=== PATIENT | female | born 1965 | race Caucasian/White ===

== ENCOUNTER 2017-02-28 17:41 | Emergency (ER) | payer MEDICARE, MEDICAID ==
[2017-02-28 19:00] VITALS: BP 119/68
--- NOTE | 2017-02-28 19:07 | UC ---
FLU HPI - HPI Summary HPI Summary: Patient is an otherwise healthy 51yo female who presents with CC of fever, chills and cough for 4 days. Pt has coughing spasms and difficulty breathing with coughing fits. Pt states she thinks she may have bronchitis as she gets this often. She also notes to passing out on 3 different occasions over the past week and this has never happened to her before. She states it is likely d/ t the dizziness. She fell and hit her head 2 weeks ago but never had any associated sxs such as dizziness, [place], pain, N/V, etc. She notes to a 103 fever yesterday. Patient is a former smoker. She has tried to take tylenol and allergy medication without relief. she has not tried a cough medication. - History of Current Complaint Chief Complaint: UCRespiratory Stated Complaint: CONGESTION Time Seen by Provider: 02/28/17 18:50 Hx Obtained From: Patient ?: No Onset/Duration: Sudden Onset Severity Currently: Moderate Severity Initially: Severe Pain Intensity: 2 Pain Scale Used: 0-10 Numeric Associated Signs & Symptoms: Positive: Fever, T Max - 103, F/C, Myalgia, Cough, Sore Throat, Nasal Congestion, Headache Related Hx: Possible Flu/Infectious Exposure - Risk Factors Influenza Risk Factors: Negative - Allergy/Home Medications Allergies/Adverse Reactions: Allergies Allergy/AdvReac Type Severity Reaction Status Date / Time Aspirin Allergy Severe Hives/Diff. Verified 02/28/17 19:00 Breathing/I tching Bee Venom Allergy Severe Anaphylatic Verified 02/28/17 19:00 Shock Moxifloxacin [From Avelox] Allergy Severe Anaphylatic Verified 02/28/17 19:00 Shock Pork Allergy Allergy Severe anaphylatic Verified 02/28/17 19:00 Topiramate [From Topamax] Allergy Severe Suicidal Verified 02/28/17 19:00 Adhesive Tape Allergy Intermediate Rash Verified 02/28/17 19:00 Zolpidem [From Ambien] Allergy Intermediate See Comment Verified 02/28/17 19:00 Aripiprazole [From Abilify] Allergy Unknown Hives/Diff. Verified 02/28/17 19:00 Breathing/I tching Lorazepam [From Ativan] Allergy Unknown Hallucinati Verified 02/28/17 19:00 ons Acesulfame Potassium Allergy Rash Verified 02/28/17 19:00 [From Suboxone] Atomoxetine [From Strattera] Allergy Hives Verified 02/28/17 19:00 Buprenorphine/Naloxone Allergy Rash Verified 02/28/17 19:00 [From Suboxone] ENVIRONMENTAL/SEASONAL Allergy Intermediate Sneezing Uncoded 02/28/17 19:00 HAYFEVER PMH/Surg Hx/FS Hx/Imm Hx Previously Healthy: No - patient has multiple issues and is on disability Endocrine History Of: Denies: Diabetes, Thyroid Disease Cardiovascular History Of: Reports: Cardiac Disorders - heart attack and , Hypertension - ON MEDS Denies: Pacemaker/ICD, Congestive Heart Failure, Deep Vein Thrombosis Respiratory History Of: Reports: COPD, Asthma, Bronchitis - CHRONIC, Pneumonia GI/ History Of: Reports: Gastroesophageal Reflux Denies: Renal Disease Neurological History Of: Reports: Migraine - 1-2 PER MONTH Denies: TIA, CVA, Dementia, Seizures Psychological History Of: Reports: Anxiety - ON MEDS, Depression - ON MEDS, Bipolar Disorder Denies: Schizophrenia Cancer History Of: Denies: Breast Cancer Other History Of: Negative For: Anticoagulant Therapy - Surgical History Surgical History: Yes Surgery Procedure, Year, and Place: cholecystectomy, 2006, [facility]. T/A 4TH GRADE. 13 RIGHT KNEE SURGIES, REPLACED. 2 LEFT KNEE SURGERIES. CARPAL TUNNEL/ TRIGGER FINGERS X5 MATTIE - Family History Known Family History: Positive: Cardiac Disease, Hypertension - Social History Occupation: Disabled Lives: Alone Alcohol Use: None Alcohol Amount: NONE SINCE 03/26/2014 Substance Use Type: None Substance Use Comment - Amount & Last Used: Narcotics Smoking Status (MU): Former Smoker Type: Cigarettes Amount Used/How Often: 3PPD X 2YR Have You Smoked in the Last Year: No When Did the Patient Quit Smoking/Using Tobacco: 1998 - Immunization History Most Recent Influenza Vaccination: DENIES Most Recent Tetanus Shot: Pt cannot recall but also declines to get shot at present time Most Recent Pneumonia Vaccination: PT STATES HAS RECEIVED IN PAST, DOES NOT RECALL WHAT YR. Review of Systems Constitutional: Fever, Chills, Fatigue Skin: Negative ENT: Nasal Discharge Respiratory: Shortness Of Breath, Cough Cardiovascular: Negative Genitourinary: Negative Motor: Weakness Neurovascular: Negative Musculoskeletal: Myalgia Neurological: Headache, Weakness Psychological: Negative All Other Systems Reviewed And Are Negative: Yes Physical Exam Triage Information Reviewed: Yes Appearance: Well-Appearing, Well-Nourished Vital Signs: Initial Vital Signs Temp 99.0 F 02/28/17 18:53 Pulse 72 02/28/17 18:53 Resp 20 02/28/17 18:53 BP 119/68 02/28/17 18:53 Pulse Ox 99 02/28/17 18:53 Vital Signs Reviewed: Yes Eye Exam: Normal Eyes: Positive: Conjunctiva Clear Neck exam: Normal Neck: Positive: Supple, No Lymphadenopathy Respiratory Exam: Normal Respiratory: Positive: Chest non-tender, Lungs clear Cardiovascular Exam: Normal Musculoskeletal Exam: Normal Musculoskeletal: Positive: Strength Intact, ROM Intact Neurological Exam: Normal Neurological: Positive: Alert, Fatigued Psychological Exam: Normal Psychological: Positive: Normal Response To Family, Age Appropriate Behavior Skin Exam: Normal Flu Course/Dx - Course Course Of Treatment: FLU NEGATIVE. PATIENT GIVEN MECLIZINE FOR RELIEF OF DIZZINESS. ROBITUSSIN WITH CODEINE AT BEDTIME FOR COUGH. TAPERING PREDNISONE FOR COUGH AND CONGESTION AND DIZZINESS. FOLLOW UP WITH PCP. PATIENT AGREES TO PLAN AND OK FOR DISCHARGE. LUNGS SOUND OK. - Differential Dx/Diagnosis Differential Diagnosis/HQI/PQRI: Bronchitis, Influenza, Pneumonia, Upper Respiratory Infection Provider Diagnoses: COUGH, DIZZINESS Discharge - Discharge Plan Condition: Stable Disposition: HOME Prescriptions: Meclizine HCl [Meclizine 25] 25 mg PO TID PRN #12 tab MDD 3 PRN Reason: Dizziness guaiFENesin/CODIEN 100MG-10MG* [Robitussin AC 100Mg-10Mg*] 10 ml PO BEDTIME PRN #100 udc MDD 10 PRN Reason: Cough guaiFENesin/CODIEN 100MG-10MG* [Robitussin AC 100Mg-10Mg*] 10 ml PO BEDTIME PRN #100 ml MDD 10 PRN Reason: Cough predniSONE TAB* [Deltasone TAB*] 10 mg PO DAILY #17 tab Patient Education Materials: Dizziness (ED), Acute Cough (ED) Referrals: Erlinda Stovall [Primary Care Provider] - Additional Instructions: TAKE MEDICATIONS PRESCRIBED REST DRINK PLENTY OF FLUIDS HUMIDIFIER IN THE HOME WILL HELP IBUPROFEN 800 MG THREE TIMES DAILY FOR INFLAMMATION FOLLOW UP WITH PCP
== END 2017-02-28 19:57 | disposition home or self-care (01) ==
LOC: UCEAST 17:41
DX: R42 Dizziness and giddiness (principal); R05 Cough; I10 Essential (primary) hypertension; I25.2 Old myocardial infarction; J44.9 Chronic obstructive pulmonary disease, unspecified; K21.9 Gastro-esophageal reflux disease without esophagitis; F31.9 Bipolar disorder, unspecified; Z91.030 Bee allergy status; Z88.6 Allergy status to analgesic agent; Z88.8 Allergy status to other drugs, medicaments and biological substances; Z91.018 Allergy to other foods; Z91.048 Other nonmedicinal substance allergy status
CPT/HCPCS: 87502; 99212; G0463

== ENCOUNTER → 2017-05-23 10:52 | Emergency (ER) | payer MEDICARE, MEDICAID ==
[~2017-05-23 10:52] MED LIST: Al Hydrox/Mg Hydrox/Simet LIQ* 30 ML UDC PO ONE; Lidocaine 2% VISCOUS* 15 ML UDC PO ONE
--- NOTE | 2017-05-23 11:22 | ED ---
GI/ HPI - HPI Summary HPI Summary: 51F presents with choking on a watermelon rind. She states she had dental surgery and is not able to chew well. She states she was chewing and then she looked at her cat and started to laugh and then choked. She tried swallowing some water afterwards and half the water went down and half she spit back up. She denies any chest pain or SOB. She states I am not having an UT. The pain started immediately when she started to choke. - History of Current Complaint Chief Complaint: EDForeignBodyEsophag Time Seen by Provider: 05/23/17 11:10 Stated Complaint: POSS PARTIAL AIRWAY OBSTRUCTION Pain Intensity: 7 - Allergy/Home Medications Allergies/Adverse Reactions: Allergies Allergy/AdvReac Type Severity Reaction Status Date / Time Aspirin Allergy Severe Hives/Diff. Verified 02/28/17 19:00 Breathing/I tching Bee Venom Allergy Severe Anaphylatic Verified 02/28/17 19:00 Shock Moxifloxacin [From Avelox] Allergy Severe Anaphylatic Verified 02/28/17 19:00 Shock Pork Allergy Allergy Severe anaphylatic Verified 02/28/17 19:00 Topiramate [From Topamax] Allergy Severe Suicidal Verified 02/28/17 19:00 Adhesive Tape Allergy Intermediate Rash Verified 02/28/17 19:00 Zolpidem [From Ambien] Allergy Intermediate See Comment Verified 02/28/17 19:00 Aripiprazole [From Abilify] Allergy Unknown Hives/Diff. Verified 02/28/17 19:00 Breathing/I tching Lorazepam [From Ativan] Allergy Unknown Hallucinati Verified 02/28/17 19:00 ons Acesulfame Potassium Allergy Rash Verified 02/28/17 19:00 [From Suboxone] Atomoxetine [From Strattera] Allergy Hives Verified 02/28/17 19:00 Buprenorphine/Naloxone Allergy Rash Verified 02/28/17 19:00 [From Suboxone] ENVIRONMENTAL/SEASONAL Allergy Intermediate Sneezing Uncoded 02/28/17 19:00 HAYFEVER PMH/Surg Hx/FS Hx/Imm Hx Endocrine/Hematology History: Denies: Hx Anticoagulant Therapy, Hx Diabetes, Hx Thyroid Disease, Hx Anemia , Hx Unexplained Bleeding, Other Endocrine/Hematological Disorders Cardiovascular History: Reports: Hx Coronary Artery Disease, Hx Hypercholesterolemia, Hx Hypertension - ON MEDS Denies: Hx Aneurysm, Hx Angina, Hx Angioplasty, Hx Auto Implanted Cardiovert Defib, Hx Cardiac Arrest, Hx Cardiomegaly, Hx Congenital Heart Disease, Hx Congestive Heart Failure, Hx Deep Vein Thrombosis, Hx Embolism, Hx Hypotension, Hx Pacemaker/ICD, Hx Peripheral Vascular Disease, Hx Rheumatic Fever, Hx Syncope , Hx Valvular Heart Disease, Other Cardiovascular Problems/Disorders Respiratory History: Reports: Hx Asthma, Hx Chronic Bronchitis, Hx Chronic Obstructive Pulmonary Disease (COPD), Hx Pneumonia, Hx Sleep Apnea Denies: Other Respiratory Problems/Disorders GI History: Reports: Hx Gastroesophageal Reflux Disease Denies: Other GI Disorders History: Reports: Hx Kidney Infection - Hx OF 2008 Denies: Hx Renal Disease, Other Problems/Disorders Musculoskeletal History: Reports: Hx Arthritis - ALL OVER, Hx Back Problems, Hx Fibromyalgia, Hx Orthopedic Injury - RECENT R PLANTAR TENDON TEAR, Hx Tendonitis - Hx OF ELBOW Denies: Other Musculoskeletal History Sensory History: Reports: Hx Contacts or Glasses - GLASSES, Hx Hearing Problem Denies: Hx Cataracts, Hx Eye Injury, Hx Eye Prosthesis, Hx Glaucoma, Hx Legally Blind, Hx Macular Degeneration, Hx Vision Problem, Hx Deafness, Hx Hearing Aid, Other Sensory Impairments Opthamlomology History: Reports: Hx Contacts or Glasses - GLASSES Denies: Hx Cataracts, Hx Eye Injury, Hx Eye Prosthesis, Hx Glaucoma, Hx Legally Blind, Hx Macular Degeneration, Hx Vision Problem, Other Sensory Impairments Neurological History: Reports: Hx Headaches, Hx Migraine - 1-2 PER MONTH Denies: Hx Dementia, Hx Developmental Delay, Hx Nerve Disease, Hx Seizures, Hx Spinal Cord Injury, Hx Transient Ischemic Attacks (TIA), Other Neuro Impairments/Disorders Psychiatric History: Reports: Hx Anxiety - ON MEDS, Hx Depression - ON MEDS, Hx Post Traumatic Stress Disorder, Hx Inpatient Treatment, Hx Community Mental Health Tx, Hx Bipolar Disorder, Hx Suicide Attempt, Hx of Violent Episodes Against Others, Hx Substance Abuse, Other Psychiatric Issues/Disorders Denies: Hx Attention Deficit Hyperactivity Disorder, Hx Eating Disorder, Hx Panic Disorder, Hx Schizophrenia - Cancer History Hx Chemotherapy: No Hx Radiation Therapy: No - Surgical History Surgery Procedure, Year, and Place: cholecystectomy, 2007, [facility]. T/A 4TH GRADE. 13 RIGHT KNEE SURGIES, REPLACED. 2 LEFT KNEE SURGERIES. CARPAL TUNNEL/ TRIGGER FINGERS X5 MATTIE Hx Anesthesia Reactions: Yes - N/V Infectious Disease History: No Infectious Disease History: Denies: Hx Clostridium Difficile, Hx Hepatitis, Hx Human Immunodeficiency Virus (HIV), Hx of Known/Suspected MRSA, Hx Shingles, Hx Tuberculosis, Hx Known/ Suspected VRE, Hx Known/Suspected VRSA, History Other Infectious Disease, Traveled Outside the [place] in Last 30 Days - Family History Known Family History: Positive: Cardiac Disease, Hypertension - Social History Alcohol Use: None Alcohol Amount: NONE SINCE 03/26/2014 Substance Use Type: Reports: None Substance Use Comment - Amount & Last Used: Narcotics Smoking Status (MU): Former Smoker Type: Cigarettes Amount Used/How Often: 3PPD X 2YR Have You Smoked in the Last Year: No Review of Systems Negative: Fever Negative: Chest Pain Negative: Shortness Of Breath Positive: Abdominal Pain - epigastric pain, Other - foreign body feeling esophagys. Negative: Vomiting, Diarrhea, Nausea All Other Systems Reviewed And Are Negative: Yes Physical Exam Triage Information Reviewed: Yes Vital Signs On Initial Exam: Initial Vitals Temp Pulse Resp BP Pulse Ox 98.7 F 70 18 118/57 98 05/23/17 10:59 05/23/17 10:59 05/23/17 10:59 05/23/17 10:59 05/23/17 10:59 Vital Signs Reviewed: Yes Appearance: Positive: Well-Appearing Skin: Positive: Warm, Dry Head/Face: Positive: Normal Head/Face Inspection Eyes: Positive: Normal, Conjunctiva Clear ENT: Positive: Normal ENT inspection, Pharynx normal, TMs normal Respiratory/Lung Sounds: Positive: Clear to Auscultation, Breath Sounds Present Cardiovascular: Positive: Normal, RRR Abdomen Description: Positive: Soft, Other: - mild tenderness in epigastric pain Bowel Sounds: Positive: Present Diagnostics - Vital Signs Vital Signs Temp Pulse Resp BP Pulse Ox 05/23/17 10:59 98.7 F 72 17 118/57 98 - Laboratory Lab Statement: Any lab studies that have been ordered have been reviewed, and results considered in the medical decision making process. - CT chest CT Interpretation: No Acute Changes - IMPRESSION: 1. SMALL HIATAL HERNIA. 2. OTHERWISE UNREMARKABLE NONCONTRAST CT OF THE CHEST CT Interpretation Completed By: Radiologist OLGA Course/Dx - Course Course Of Treatment: 51F presents with choking on a watermelon rind. She states she had dental surgery and is not able to chew well. She states she was chewing and then she looked at her cat and started to laugh and then choked. She tried swallowing some water afterwards and half the water went down and half she spit back up. She denies any chest pain or SOB. Do not suspect pain is cardiac related even though it having epigastric pain. No GI coverage so got CT chest shows no foreign body. discussed with dr ibis cota d/c on antiacid. patient understands and agrees with plan - Diagnoses Differential Diagnoses - Female: Gastroenteritis (Viral), GI Foreign Body, Peptic Ulcer Disease Provider Diagnoses: Esophageal foreign body Discharge - Discharge Plan Condition: Good Disposition: HOME Prescriptions: Al Hydrox/Mg Hydrox/Simet LIQ* [Maalox Plus*] 30 ml PO Q4H PRN #1 bottle PRN Reason: Indigestion Patient Education Materials: Esophageal Foreign Body (ED) Referrals: Erlinda Stovall [Primary Care Provider] - Additional Instructions: Take Maalox 30ml every 4-6 hours for pain Drink plenty of fluids Eat soft foods for a day and avoid acidic food Follow up with primary within 5 days Return to ED if develop any new or worsening symptoms
--- NOTE | 2017-05-23 12:03 | RAD ---
HISTORY: Choking, food stuck in esophagus COMPARISONS: July 08, 2015 TECHNIQUE: Multiple contiguous axial CT scans of the chest were obtained without intravenous contrast. Coronal and sagittal multiplanar reformations are also submitted for review. FINDINGS: The study is limited by the lack of intravenous contrast. This limits evaluation of the solid organs and vasculature. NECK AND THYROID: The lower neck and thyroid are unremarkable. CHEST WALL: There is no lower cervical, axillary, or supraclavicular lymphadenopathy by size criteria. HEART AND PERICARDIUM: The heart is unremarkable. AORTA AND PULMONARY VASCULATURE: The aorta and pulmonary vasculature are normal. MEDIASTINUM: There is no mediastinal lymphadenopathy by size criteria. CARMENCITA: There is no hilar lymphadenopathy by size criteria. AIRWAY AND ESOPHAGUS: The airway is unremarkable, without endobronchial filling defect. The esophagus is grossly normal. There is a small sliding hiatal hernia. There is no appreciable retained object within the visualized portion of the esophagus. LUNG PARENCHYMA: The lungs are clear. PLEURA: No pleural abnormalities are noted. UPPER ABDOMEN: The upper abdomen is unremarkable. BONES AND SOFT TISSUES: Degenerative changes are noted of the spine OTHER: None. IMPRESSION: 1. SMALL HIATAL HERNIA. 2. OTHERWISE UNREMARKABLE NONCONTRAST CT OF THE CHEST
[2017-05-23 12:40] VITALS: BP 130/59
== END | disposition home or self-care (01) ==
LOC: ED 10:52
DX: S10.15XA Superficial foreign body of throat, initial encounter (principal); R10.13 Epigastric pain; Z87.891 Personal history of nicotine dependence; X58.XXXA Exposure to other specified factors, initial encounter; Y93.9 Activity, unspecified; Y92.9 Unspecified place or not applicable
CPT/HCPCS: 71250; 99283

== ENCOUNTER 2017-06-18 17:26 | Emergency (ER) | payer MEDICARE, MEDICAID ==
--- NOTE | 2017-06-18 19:15 | ED ---
Lower Extremity - HPI Summary HPI Summary: 51F presents with left knee pain for a week. She states a week and a half ago she got her knee tangled in the sheets and felt it twist. She states since then the knee has been popping and locking. She states she has pain on the medial aspect of her knee. She states that on Sunday that her knee locked up and she had extreme pain. She has been taking ibuprofen for her pain. She denies any numbness or tingling. She had a previous knee replacement of the right knee. She is seeing ortho next sun. - History of Current Complaint Chief Complaint: EDExtremityLower Stated Complaint: LEFT KNEE PAIN Time Seen by Provider: 06/18/17 18:27 Pain Intensity: 8 - Allergies/Home Medications Allergies/Adverse Reactions: Allergies Allergy/AdvReac Type Severity Reaction Status Date / Time Aspirin Allergy Severe Hives/Diff. Verified 02/28/17 19:00 Breathing/I tching Bee Venom Allergy Severe Anaphylatic Verified 02/28/17 19:00 Shock Moxifloxacin [From Avelox] Allergy Severe Anaphylatic Verified 02/28/17 19:00 Shock Pork Allergy Allergy Severe anaphylatic Verified 02/28/17 19:00 Topiramate [From Topamax] Allergy Severe Suicidal Verified 02/28/17 19:00 Adhesive Tape Allergy Intermediate Rash Verified 02/28/17 19:00 Zolpidem [From Ambien] Allergy Intermediate See Comment Verified 02/28/17 19:00 Aripiprazole [From Abilify] Allergy Unknown Hives/Diff. Verified 02/28/17 19:00 Breathing/I tching Lorazepam [From Ativan] Allergy Unknown Hallucinati Verified 02/28/17 19:00 ons Acesulfame Potassium Allergy Rash Verified 02/28/17 19:00 [From Suboxone] Atomoxetine [From Strattera] Allergy Hives Verified 02/28/17 19:00 Buprenorphine/Naloxone Allergy Rash Verified 02/28/17 19:00 [From Suboxone] ENVIRONMENTAL/SEASONAL Allergy Intermediate Sneezing Uncoded 02/28/17 19:00 HAYFEVER PMH/Surg Hx/FS Hx/Imm Hx Endocrine/Hematology History: Denies: Hx Anticoagulant Therapy, Hx Diabetes, Hx Thyroid Disease, Hx Anemia , Hx Unexplained Bleeding, Other Endocrine/Hematological Disorders Cardiovascular History: Reports: Hx Coronary Artery Disease, Hx Hypercholesterolemia, Hx Hypertension - ON MEDS Denies: Hx Aneurysm, Hx Angina, Hx Angioplasty, Hx Auto Implanted Cardiovert Defib, Hx Cardiac Arrest, Hx Cardiomegaly, Hx Congenital Heart Disease, Hx Congestive Heart Failure, Hx Deep Vein Thrombosis, Hx Embolism, Hx Hypotension, Hx Pacemaker/ICD, Hx Peripheral Vascular Disease, Hx Rheumatic Fever, Hx Syncope , Hx Valvular Heart Disease, Other Cardiovascular Problems/Disorders Respiratory History: Reports: Hx Asthma, Hx Chronic Bronchitis, Hx Chronic Obstructive Pulmonary Disease (COPD), Hx Pneumonia, Hx Sleep Apnea Denies: Other Respiratory Problems/Disorders GI History: Reports: Hx Gastroesophageal Reflux Disease Denies: Other GI Disorders History: Reports: Hx Kidney Infection - Hx OF 2008 Denies: Hx Renal Disease, Other Problems/Disorders Musculoskeletal History: Reports: Hx Arthritis - ALL OVER, Hx Back Problems, Hx Fibromyalgia, Hx Orthopedic Injury - RECENT R PLANTAR TENDON TEAR, Hx Tendonitis - Hx OF ELBOW Denies: Other Musculoskeletal History Sensory History: Reports: Hx Contacts or Glasses - GLASSES, Hx Hearing Problem Denies: Hx Cataracts, Hx Eye Injury, Hx Eye Prosthesis, Hx Glaucoma, Hx Legally Blind, Hx Macular Degeneration, Hx Vision Problem, Hx Deafness, Hx Hearing Aid, Other Sensory Impairments Opthamlomology History: Reports: Hx Contacts or Glasses - GLASSES Denies: Hx Cataracts, Hx Eye Injury, Hx Eye Prosthesis, Hx Glaucoma, Hx Legally Blind, Hx Macular Degeneration, Hx Vision Problem, Other Sensory Impairments Neurological History: Reports: Hx Headaches, Hx Migraine - 1-2 PER MONTH Denies: Hx Dementia, Hx Developmental Delay, Hx Nerve Disease, Hx Seizures, Hx Spinal Cord Injury, Hx Transient Ischemic Attacks (TIA), Other Neuro Impairments/Disorders Psychiatric History: Reports: Hx Anxiety - ON MEDS, Hx Depression - ON MEDS, Hx Post Traumatic Stress Disorder, Hx Inpatient Treatment, Hx Community Mental Health Tx, Hx Bipolar Disorder, Hx Suicide Attempt, Hx of Violent Episodes Against Others, Hx Substance Abuse, Other Psychiatric Issues/Disorders Denies: Hx Attention Deficit Hyperactivity Disorder, Hx Eating Disorder, Hx Panic Disorder, Hx Schizophrenia - Cancer History Hx Chemotherapy: No Hx Radiation Therapy: No - Surgical History Surgery Procedure, Year, and Place: cholecystectomy, 2007, [facility]. T/A 4TH GRADE. 13 RIGHT KNEE SURGIES, REPLACED. 2 LEFT KNEE SURGERIES. CARPAL TUNNEL/ TRIGGER FINGERS X5 MATTIE Hx Anesthesia Reactions: Yes - N/V Infectious Disease History: Denies: Hx Clostridium Difficile, Hx Hepatitis, Hx Human Immunodeficiency Virus (HIV), Hx of Known/Suspected MRSA, Hx Shingles, Hx Tuberculosis, Hx Known/ Suspected VRE, Hx Known/Suspected VRSA, History Other Infectious Disease, Traveled Outside the [place] in Last 30 Days - Family History Known Family History: Positive: Cardiac Disease, Hypertension - Social History Alcohol Use: None Alcohol Amount: NONE SINCE 03/26/2014 Substance Use Type: Reports: None Substance Use Comment - Amount & Last Used: Narcotics Smoking Status (MU): Former Smoker Type: Cigarettes Amount Used/How Often: 3PPD X 2YR Have You Smoked in the Last Year: No Review of Systems Negative: Fever Negative: Chest Pain Negative: Shortness Of Breath Positive: Myalgia - left knee pain All Other Systems Reviewed And Are Negative: Yes Physical Exam Triage Information Reviewed: Yes Vital Signs On Initial Exam: Initial Vitals Temp Pulse Resp BP Pulse Ox 98.3 F 80 20 120/67 98 06/18/17 17:28 06/18/17 17:28 06/18/17 17:28 06/18/17 17:28 06/18/17 17:28 Vital Signs Reviewed: Yes Appearance: Positive: Well-Appearing Skin: Positive: Warm, Dry Head/Face: Positive: Normal Head/Face Inspection Eyes: Positive: Normal, Conjunctiva Clear Respiratory/Lung Sounds: Positive: Clear to Auscultation, Breath Sounds Present Cardiovascular: Positive: Normal, RRR Musculoskeletal: Positive: Limited @ - left knee, Other - good pulses, capillary refill<2 secs, unable to perform anterior and sherice as unable to flex knee pass 90 Diagnostics - Vital Signs Vital Signs Temp Pulse Resp BP Pulse Ox 06/18/17 17:28 98.3 F 80 20 120/67 98 - Laboratory Lab Statement: Any lab studies that have been ordered have been reviewed, and results considered in the medical decision making process. - Radiology knee Xray Interpretation: Positive (See Comments) - IMPRESSION: Kellgren and Sterling grade 2 osteoarthritis with worsening compared with the 2008 exam. Radiology Interpretation Completed By: Radiologist Lower Extremity Course/Dx - Course Course Of Treatment: 51F presents with left knee pain for a week. She states a week and a half ago she got her knee tangled in the sheets and felt it twist. She states since then the knee has been popping and locking. She states she has pain on the medial aspect of her knee. She states that on Sunday that her knee locked up and she had extreme pain. She has been taking ibuprofen for her pain. on exam unable to flex knee pass 90 degrees. neurovascular intact. xray shows osteoarthritis. explained results to patient. pain could be due to arthritis or potential meniscal injury. told to follow up with ortho as scheduled. patient understands and agrees with plan. - Diagnoses Differential Diagnosis/HQI/PQRI: Positive: Fracture (Closed), Sprain, Strain Provider Diagnoses: Left knee pain Discharge - Discharge Plan Condition: Good Disposition: HOME Patient Education Materials: Knee Pain (ED) Referrals: Erlinda Stovall [Primary Care Provider] - Nieves Lindsay MD [Medical Doctor] - Additional Instructions: Take Tylenol or ibuprofen every 6 hours as needed for pain Apply ice, rest, elevate Follow up with ortho if no improvement Return to ED if develop any new or worsening symptoms
--- NOTE | 2017-06-18 19:57 | RAD ---
Indication: LEFT knee pain following injury; locking and jamming. Comparison: April 16, 2008 MRI. Technique: RIGHT knee: AP, tunnel, lateral, views. Report: Negative for fracture. Small joint effusion. Tricompartmental osteophytosis. Moderate medial joint space narrowing with associated varus angulation. Unremarkable soft tissue contours accounting for morbid obesity. IMPRESSION: Kellgren and Sterling grade 2 osteoarthritis with worsening compared with the 2008 exam.
[2017-06-18 20:26] VITALS: BP 129/65
== END 2017-06-18 20:26 | disposition home or self-care (01) ==
LOC: ED 17:26
DX: M25.562 Pain in left knee (principal); I10 Essential (primary) hypertension; F03.90 Unspecified dementia, unspecified severity, without behavioral disturbance, psychotic disturbance, mood disturbance, and anxiety; R62.50 Unspecified lack of expected normal physiological development in childhood; J45.909 Unspecified asthma, uncomplicated; K21.9 Gastro-esophageal reflux disease without esophagitis; I25.10 Atherosclerotic heart disease of native coronary artery without angina pectoris; E78.00 Pure hypercholesterolemia, unspecified; X50.1XXA Overexertion from prolonged static or awkward postures, initial encounter; Y92.9 Unspecified place or not applicable; Z87.891 Personal history of nicotine dependence
CPT/HCPCS: 99281

== ENCOUNTER 2017-09-06 05:56 | Day surgery (SDC) | payer MEDICARE, MEDICAID ==
--- NOTE | 2017-08-31 15:07 | HP ---
HISTORY AND PHYSICAL: DATE OF ADMISSION: 09/06/17 DATE OF OFFICE VISIT: 08/31/17 SURGEON: Nieves Lindsay MD * (DICTATED BY SHAMEKA KENNEDY) PROCEDURE: Left knee arthroscopy with partial meniscectomy, possible chondroplasty, possible synovectomy. CHIEF COMPLAINT: Left knee pain. HISTORY OF PRESENT ILLNESS: Ms. Wolfe is a 51-year-old female with continued complaints of left knee pain. She has failed conservative management and has elected to proceed with a left knee arthroscopy with partial meniscectomy, possible chondroplasty, possible synovectomy. PAST MEDICAL HISTORY: Hypertension, bipolar, prior ND, migraines, GERD, history of DVT, and past alcohol and drug abuse. PAST SURGICAL HISTORY: Right knee surgery x5 including a total knee arthroplasty, left knee arthroscopy x2, tonsillectomy, adenoidectomy, cholecystectomy, trigger finger release, and bilateral carpal tunnel release. CURRENT MEDICATIONS: 1. Wellbutrin 300 mg twice daily. 2. Ibuprofen 800 as needed. 3. Effexor 300 mg daily. 4. Nitroglycerin as needed. 5. Lisinopril 10 mg daily. 6. Pravastatin sodium 20 mg daily. 7. Albuterol as needed. 8. Symbicort daily. 9. Hyzaar 20 mg daily. 10. Omeprazole 40 mg twice a day. 11. EpiPen as needed. 12. Diltiazem 360 mg daily. 13. Latuda 20 mg. 14. Losartan potassium/hydrochlorothiazide 50/12.5 mg 1 tablet every day. 15. Vitamin D. 16. Sodium chloride. 17. Vitamin B12. ALLERGIES: To AVELOX, TOPAMAX, AMBIEN, ATIVAN, ASPIRIN. FAMILY HISTORY: Heart disease, diabetes, cancer, and brain aneurysm. SOCIAL HISTORY: She is a 51-year-old female. She lives alone. She does not work. She denies drugs or alcohol. She does not smoke. REVIEW OF SYSTEMS: A complete 14-point review of systems was reviewed with the patient and was positive for past DVT in the 80s and is also positive for asthma. She denies any history of bleeding disorders or anesthesia problems. PHYSICAL EXAMINATION GENERAL: She is an obese female, in no acute distress. She is alert and oriented x3. Pleasant mood and appropriate affect. VITAL SIGNS: She stands 5 feet 9 inches tall, weighs 285 pounds. Her blood pressure 142/89, her heart rate is 73. HEENT: Normocephalic, atraumatic. NECK: Supple. No palpable lymph nodes. PULMONARY: Lungs are clear to auscultation bilaterally. CARDIAC: Regular rate and rhythm. ABDOMEN: Soft, nontender, and nondistended. MUSCULOSKELETAL: Left lower extremity, the skin is intact. There are no open wounds or abrasions. She has gfga-ku-krhfahma effusion of the left knee, 5 to 130 degrees flexion. There is MCL laxity, but no varus or valgus instability. She is tender to palpation over the medial joint line. She is distally neurovascularly intact. NEUROLOGICAL: Cranial nerves II through XII are intact. DIAGNOSTIC STUDIES: An MRI of her left knee shows both medial and lateral meniscus tears with some displacement. ASSESSMENT AND PLAN: Ms. Wolfe is a 51-year-old female with left knee pain. She failed conservative management and has elected to proceed with left knee arthroscopy with partial meniscectomy, possible chondroplasty, possible synovectomy. Surgery is scheduled for 09/06/[address] Lindsay discussed the risks and benefits of the surgery at today's visit and all of her questions were answered. She has a history of DVT in the past and is allergic to ASPIRIN, so we have sent Lovenox to her pharmacy to take daily for 2 weeks after the surgery and she will see Dr. Lindsay back 2 weeks after the surgery. SHAMEKA KENNEDY [id number]/[facility] #: [id number] [facility]ITAL[facility]harat
[~2017-09-06 05:56] MED LIST changes: -Al Hydrox/Mg Hydrox/Simet LIQ* 30 ML UDC PO ONE; +Buffered Lidocaine 0.9% SYRIN* 5 ML/SYR SYRINGE INTRADERM ONE; +Buffered Lidocaine 0.9% SYRIN* 5 ML/SYR SYRINGE ONE; +Dexamethasone IV* 4 MG/ML 1 ML (4 MG) ONE; -Lidocaine 2% VISCOUS* 15 ML UDC PO ONE; +ceFAZolin 2 GM PREMIX (*) 50 ML IVPB ONE
[2017-09-06] MEDS ORDERED: Dexamethasone IV* 4 MG/ML 1 ML (4 MG) IV SLOW PU ONE (06:00)
[2017-09-06] MEDS ORDERED: ceFAZolin 1 GM ADVAN(*) 1 GM ADDV.VIAL IVPB ONE (06:58)
[2017-09-06] MEDS ORDERED: Dexamethasone IV* 4 MG/ML 1 ML (4 MG) ONE (07:03)
[2017-09-06] MEDS ORDERED: Bupivacaine 0.5% SDV PF* 30 ML VIAL ONE (07:07)
[2017-09-06] MEDS ORDERED: methylPREDNISolone ACETATE 80* 80 MG/ML 1 ML VIAL ONE (07:07)
[2017-09-06] MEDS ORDERED: EPINEPHrine AMP 1 MG/ML ONE (07:07)
[2017-09-06] MEDS ORDERED: Famotidine IV* 10 MG/ML 2 ML (20 mg) IV SLOW PU ONE (07:19)
[2017-09-06] MEDS ORDERED: Midazolam* 1 MG/ML 5 ML VIAL (5 MG) ONE (07:21)
[2017-09-06] MEDS ORDERED: Famotidine IV* 10 MG/ML 2 ML (20 mg) ONE (07:21)
[2017-09-06] MEDS ORDERED: fentaNYL* 50 MCG/ML 2 ML VIAL (100 MCG VIAL) ONE ×2 (07:21→09:08)
[2017-09-06] MEDS ORDERED: Ondansetron INJ* 2 MG/ML VIAL ONE (07:22)
[2017-09-06] MEDS ORDERED: Chloroprocaine 2%* 20 ML VIAL ONE (07:22)
[2017-09-06] MEDS ORDERED: Propofol* 10 MG/ML 20 ML BTL IV PUSH ONE (07:22)
[2017-09-06] MEDS ORDERED: Ketorolac INJ* 30 MG/ML 1 ML VIAL ONE (07:22)
[2017-09-06] MEDS ORDERED: Ondansetron INJ* 2 MG/ML VIAL IV PRN (08:02)
[2017-09-06] MEDS ORDERED: fentaNYL* 50 MCG/ML 2 ML VIAL (100 MCG VIAL) IV PRN (08:02)
[2017-09-06] MEDS ORDERED: DiMENhydriNATE IV* 50 MG/ML VIAL IV PUSH PRN (08:02)
[2017-09-06] MEDS ORDERED: oxyCODONE/Acetamin 5/325 MG* TAB ONE (09:08)
[2017-09-06] MEDS: oxyCODONE/Acetamin 5/325 MG* TAB PO PRN ×2 (09:10→09:11)
[2017-09-06 10:38] VITALS: BP 124/60
--- NOTE | 2017-09-07 22:25 | OP ---
OPERATIVE NOTE: DATE OF OPERATION: 09/06/17 DATE OF : 65 SURGEON: Nieves Lindsay MD. CALENDER LET OFF HELPER: SHAMEKA Stiles. Howe did help throughout the procedure with preparation of the leg, wound retraction, manipulation of the knee and wound closure. ANESTHESIOLOGIST: Dr. Reed. ANESTHESIA: Spinal. PRE-OP DIAGNOSIS: Left knee pain with medial meniscal tear, moderate osteoarthritis. POST-OP DIAGNOSIS: Left knee parrot beak type medial meniscal tear, radial tear of the lateral meniscus, moderate to severe osteoarthritis. PROCEDURE PERFORMED: Left knee arthroscopy with patrial medial meniscectomy, medial chondroplasty, partial lateral meniscectomy. COMPLICATIONS: None. ESTIMATED BLOOD LOSS: Less than 25 cc. SPECIMEN: None. BRIEF HISTORY/INDICATIONS: Ms. Wolfe is a 51-year-old female, who presented with acute on chronic left knee pain. She felt that her left meniscus had re- torn. MRI confirmed this. She was found to have both medial and lateral meniscal tears on MRI. The patient strongly felt that the meniscal symptoms were primarily her problem. She failed conservative treatment with antiinflammatories, intraarticular injections and physical therapy. She wished to continue with left knee arthroscopy with partial medial and lateral meniscectomies. Appropriate preoperative medical clearance was obtained. Informed consent was obtained from the patient. She understood the risks of the surgery included, but were not limited to bleeding, infection, damage to nearby structures, continued pain, need for further surgery, re-tear of the meniscus, stroke, heart attack, blood clot, and . She wished to proceed. INTRAOPERATIVE FINDINGS: Intraoperatively, the patient was noted to have grade 3 and 4 Outerbridge cartilage changes in both the medial and patellofemoral compartments. She had a parrot-peak type tear of the medial meniscus and radial tear of the lateral meniscus. The medial meniscus tear involved the white-red and red-red zones. Lateral meniscal tear involved the white-red zone. DESCRIPTION OF PROCEDURE: Ms. Wolfe was identified in the preanesthesia unit. Her left lower extremity was marked as the correct operative site. Informed consent was signed and placed in the chart. The patient was taken to the operating room and placed under spinal anesthesia. The left lower extremity was prepped and draped in the usual sterile fashion. Preop time-out was made to correctly identify the patient's side and site. Appropriate perioperative antibiotics were given within 1 hour of incision. A standard 0.5 cm anterolateral portal incision was made along the anterolateral joint line. Trocar was introduced. Both water and light sources were turned on. A tour of the knee joint was performed. Patellofemoral compartment showed advanced grade 3 and 4 Outerbridge cartilage changes with exposed subchondral bone. Both medial gutters showed no loose body or plica. The medial compartment showed grade 3 and 4 Outerbridge cartilage changes along the medial femoral condyle. There was a parrot peak type tear involving the mid portion of the medial meniscus. There was a sharp radial component to this as well. ACL appeared to be intact. The knee was placed in a [id number] position. There were some grade 2 and 3 Outerbridge cartilage changes in this compartment as well as a radial tear of the middle portion of the lateral meniscus. Under direct visualization, a medial portal incision was made. A probe was introduced and a second tour of the knee joint was performed. No additional findings were noted. Shaver and radiofrequency ablation wand were used to remove some anterior synovitis. Radiofrequency ablation wand was used to smooth any cartilage flapping along the medial femoral condyle. Once this chondroplasty was performed, a straight bitter was used to perform partial medial meniscectomy. Shaver and radiofrequency ablation wand were used to smooth the border of the partial meniscectomy. This was in the white-red and red-red zone. Any bleeding encountered was cauterized. Next, the knee was placed in a [id number]-[id number]-[id number] position. Straight biter and shaver were used to perform partial lateral meniscectomy in the white-red zone. A smooth border was obtained. Shaver was placed in the suprapatellar pouch and the knee was thoroughly irrigated. All instruments were carefully removed. The incisions were closed using interrupted 3-0 nylon suture. Intraarticular injection of 80 mg Depo- Medrol and 6 cc of 0.25% Marcaine was placed in the knee joint. Sterile Xeroform, 4x4's, and Webril were used to cover the incision. Ej wrap and cold pack were placed over this. The patient's anesthesia was reversed without difficulty. She was taken to the PACU in stable condition. Intended weightbearing will be weightbearing as tolerated. Due to the patient's DVT history, she will have Lovenox for the next 2 weeks. [id number]/[facility] #: [id number] [facility]ENTERB[facility]
== END 2017-09-06 10:34 | disposition home or self-care (01) ==
LOC: OR 05:56
PROVIDERS: ATTEND Orthopaedic Surgery Adult Reconstructive Orthopaedic Surgery
DX: M23.332 Other meniscus derangements, other medial meniscus, left knee (principal); M23.362 Other meniscus derangements, other lateral meniscus, left knee; M17.12 Unilateral primary osteoarthritis, left knee; M94.8X6 Other specified disorders of cartilage, lower leg; M65.862 Other synovitis and tenosynovitis, left lower leg; I10 Essential (primary) hypertension; F31.9 Bipolar disorder, unspecified; I25.2 Old myocardial infarction; J45.909 Unspecified asthma, uncomplicated; K21.9 Gastro-esophageal reflux disease without esophagitis; E66.9 Obesity, unspecified; Z88.6 Allergy status to analgesic agent; Z88.1 Allergy status to other antibiotic agents; Z88.5 Allergy status to narcotic agent; Z88.8 Allergy status to other drugs, medicaments and biological substances; Z86.718 Personal history of other venous thrombosis and embolism
CPT/HCPCS: A9270-GY; J0171; J0690; J1040; J1100; J1885; J2250; J2400; J2405; J2704; J3010

== ENCOUNTER 2017-11-23 10:50 | Emergency (ER) | payer MEDICARE, MEDICAID ==
[2017-11-23 11:16] VITALS: BP 152/75
--- NOTE | 2017-11-23 11:59 | UC ---
Respiratory Complaint HPI - HPI Summary HPI Summary: Pt presents with flu like symptoms. She tells me that over the last 2-3 days she has had sinus congestion, dry cough, earache, headache, and body aches. She has not taken anything OTC. Denies fever, chills, SOB, chest pain, abdominal pain, N/V/D/C - History of Current Complaint Chief Complaint: UCRespiratory Stated Complaint: SINUS CHEST CONGESTION EAR PAIN Time Seen by Provider: 11/23/17 11:54 Hx Obtained From: Patient Onset/Duration: Gradual Onset Severity Initially: Moderate Severity Currently: Moderate Pain Intensity: 7 Pain Scale Used: 0-10 Numeric Character: Cough: Nonproductive - Allergies/Home Medications Allergies/Adverse Reactions: Allergies Allergy/AdvReac Type Severity Reaction Status Date / Time Aspirin Allergy Severe Hives/Diff. Verified 11/23/17 11:17 Breathing/I tching Bee Venom Allergy Severe Anaphylatic Verified 11/23/17 11:17 Shock Moxifloxacin [From Avelox] Allergy Severe Anaphylatic Verified 11/23/17 11:17 Shock Pork Allergy Allergy Severe anaphylatic Verified 11/23/17 11:17 Topiramate [From Topamax] Allergy Severe Suicidal Verified 11/23/17 11:17 Adhesive Tape Allergy Intermediate Rash Verified 11/23/17 11:17 Zolpidem [From Ambien] Allergy Intermediate See Comment Verified 11/23/17 11:17 Aripiprazole [From Abilify] Allergy Unknown Hives/Diff. Verified 11/23/17 11:17 Breathing/I tching Lorazepam [From Ativan] Allergy Unknown Hallucinati Verified 11/23/17 11:17 ons Acesulfame Potassium Allergy Rash Verified 11/23/17 11:17 [From Suboxone] Atomoxetine [From Strattera] Allergy Hives Verified 11/23/17 11:17 Buprenorphine/Naloxone Allergy Rash Verified 11/23/17 11:17 [From Suboxone] ENVIRONMENTAL/SEASONAL Allergy Intermediate Sneezing Uncoded 09/06/17 06:05 HAYFEVER PMH/Surg Hx/FS Hx/Imm Hx Endocrine History: Dyslipidemia Cardiovascular History: Hypertension Respiratory History: COPD, Asthma GI/ History: Gastroesophageal Reflux Neurological History: Migraine Psychological History: Anxiety, Depression Other History Of: Negative For: Anticoagulant Therapy - Surgical History Surgical History: Yes Surgery Procedure, Year, and Place: cholecystectomy, 2007, [facility] [place]. TONSILLECTOMY AND ADEENOIDECTOMY 4TH GRADE. 13 RIGHT KNEE SURGERIES, REPLACED. 2 LEFT KNEE SURGERIES. CARPAL TUNNEL/ TRIGGER FINGERS X5 MATTIE - Family History Known Family History: Positive: Cardiac Disease, Hypertension - Social History Alcohol Use: None Alcohol Amount: NONE SINCE 03/26/2014 Substance Use Type: None Substance Use Comment - Amount & Last Used: Narcotics Smoking Status (MU): Former Smoker Type: Cigarettes Amount Used/How Often: 3PPD X 2YR Have You Smoked in the Last Year: No When Did the Patient Quit Smoking/Using Tobacco: 1998 - Immunization History Most Recent Influenza Vaccination: NO Most Recent Tetanus Shot: Pt cannot recall but also declines to get shot at present time Most Recent Pneumonia Vaccination: PT STATES HAS RECEIVED IN PAST, DOES NOT RECALL WHAT YR. Review of Systems Constitutional: Other - Body aches Skin: Negative Eyes: Negative ENT: Ear Ache, Nasal Discharge, Sinus Congestion, Sinus Pain/Tenderness Respiratory: Cough Cardiovascular: Negative Gastrointestinal: Negative Neurological: Headache Psychological: Negative All Other Systems Reviewed And Are Negative: Yes Physical Exam Triage Information Reviewed: Yes Appearance: Well-Appearing, No Pain Distress, Well-Nourished Vital Signs: Initial Vital Signs Temp 98.4 F 11/23/17 11:08 Pulse 84 11/23/17 11:08 Resp 16 11/23/17 11:08 BP 152/75 11/23/17 11:08 Pulse Ox 98 11/23/17 11:08 Vital Signs Reviewed: Yes Eyes: Positive: Conjunctiva Clear. Negative: Conjunctiva Inflamed, Discharge ENT: Positive: Hearing grossly normal, Pharynx normal, Nasal congestion, Nasal drainage, TM bulging - Right ear, TM red - Right ear, Uvula midline. Negative: Pharyngeal erythema, Tonsillar swelling, Tonsillar exudate, Sinus tenderness Neck: Positive: Supple, Nontender, No Lymphadenopathy Respiratory: Positive: Chest non-tender, Lungs clear, Normal breath sounds, No respiratory distress, No accessory muscle use Cardiovascular: Positive: RRR, No Murmur, Pulses Normal Neurological: Positive: Alert Psychological: Positive: Age Appropriate Behavior Skin: Negative: rashes UC Diagnostic Evaluation - Laboratory O2 Sat by Pulse Oximetry: 98 Respiratory Course/Dx - Course Course Of Treatment: Flu POC: Negative. Otitis media right ear. bronchitis - advised to use her at home inhalers as she reports that she has not been doing this. sinusitis - Differential Dx/Diagnosis Provider Diagnoses: Otitis media right ear. Bronchitis. Sinusitis Discharge - Discharge Plan Condition: Stable Disposition: HOME Prescriptions: Amoxicillin PO (*) [Amoxicillin 500 MG CAP*] 500 mg PO Q12H #20 cap Patient Education Materials: Otitis Media (ED), Acute Bronchitis (ED) Referrals: Erlinda Stovall [Primary Care Provider] - Additional Instructions: If you develop a fever, SOB, chest pain, new or worsening symptoms - please call your PCP or go to the ED. Your blood pressure was high at todays visit. Please see your primary provider within 4 weeks for recheck and re-evaluation. 1) Please take plain Mucinex OTC twice a day for the sinus and chest congestion.
== END 2017-11-23 12:30 | disposition home or self-care (01) ==
LOC: UCEAST 10:50
DX: H66.91 Otitis media, unspecified, right ear (principal); J40 Bronchitis, not specified as acute or chronic; J32.9 Chronic sinusitis, unspecified; I10 Essential (primary) hypertension; J44.9 Chronic obstructive pulmonary disease, unspecified; Z88.6 Allergy status to analgesic agent; Z88.1 Allergy status to other antibiotic agents; Z91.030 Bee allergy status; Z88.8 Allergy status to other drugs, medicaments and biological substances; Z91.018 Allergy to other foods; Z91.048 Other nonmedicinal substance allergy status; Z87.891 Personal history of nicotine dependence
CPT/HCPCS: 87502; 99212; G0463

== ENCOUNTER 2018-06-21 12:58 | Emergency (ER) | payer MEDICARE, MEDICAID ==
--- OUTSIDE RECORDS SUMMARY | 2018-06-21 13:40 | XMS REPORT ---
:1965 External Reference #:[id number] Author Organization [email or web address] Address [address] [address] [place] [address] Phone [phone] Care Team Providers Name Role Phone Erlinda Marquez FNP Primary Care Physician Unavailable Payers Type Date Identification Numbers Payment Provider Subscriber Medicare Primary Effective: Policy Number: Medicare Tanesha Wolfe 2007 [id number] PayID: [id number] [address] [place] [address] [facility] Part B Policy Number: [id number] Medicaid Tanesha Wolfe PayID: [id number] [address] [place] [address] Problems Date Description Provider Status Onset: 07/31/2012 Abnormal results of Paloma Modi N.P. Active cardiovascular function studies Onset: 02/16/2015 Obstructive sleep apnea syndrome Chana Bo MD Active Onset: 02/16/2015 Morbid obesity Chana Bo MD Active Onset: 02/16/2015 Hypersomnia with sleep apnea Chana Bo MD Active Onset: 08/04/2016 Strain of trapezius muscle Gavi Henderson MD Active Onset: 08/04/2016 Localized, secondary Gavi Henderson MD Active osteoarthritis of the shoulder region Onset: 08/04/2016 Sprain of wrist Gavi Henderson MD Active Onset: 08/17/2017 Localized, primary osteoarthritis Nieves Lindsay M.D. Active Onset: 08/17/2017 Current tear of lateral cartilage Nieves Lindsay M.D. Active AND/OR meniscus of knee Onset: 08/17/2017 Radial tear of medial meniscus Nieves Lindsay M.D. Active Onset: 09/17/2017 Current tear of medial cartilage Nieves Lindsay M.D. Active AND/OR meniscus of knee Onset: 06/20/2018 Body mass index 40+ - severely Antoinette Moscoso DNP, RN, Active obese FOOD AND BEVERAGE ASSISTANT MANAGER-BC Family History Date Family Member(s) Problem(s) Comments General Diabetes mother, maternl grandmother & aunt General Arthritis grandmother General Colon Cancer maternal grandfather General [place] father Onset: (2018) (age 72 Father Alive And Well aneurysm, [place] Years) Onset: (05/03/2018) Mother Diabetes (age 75 Years) Siblings 2 1/2 sister 1/2 brother well 2018 Social History Type Date Description Comments Marital Status Single Lives With Alone Occupation Disabled ETOH Use 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 Smoking Patient is a former smoker Recreational Drug Use 05/03/2018 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 Monitor 2018 1-2x Foster, Automatic With daily N.P. Large Cuff Nitroglycerin 06/07/ Active Tablets 0.4mg 14tabs Take 1 Viri S. 2018 Sub tab by Foster, mouth prn N.P. chest pain Diltiazem CD 05/03/ Active Caps ER 120mg 180cap 2 by I10 Damián 2018 24HR s mouth FMello Mahelga, every day M.D. Pravastatin 05/03/ Active Tablets 40mg take 1 Damián Sodium 2018 tablet by Nate Solomon, mouth at M.D. bedtime Knee Brace 06/29/ Active Misc 1units hinged Nieves Adjustable 2016 knee Neftali, Hinged/Maximum brace M.D. Support Ibuprofen / Active Tablets 800mg 100tab prn Unknown 0000 s Effexor / Active Tablets 150mg 1 po qd Unknown 0000 Albuterol / Active prn Unknown Sulfate 0000 Omeprazole / Active 40mg 1 tab Unknown 0000 twice a day Losartan / Active Tablets 50-12.5mg Take 1/2 Unknown Potassium/[place] 0000 Tablet By chlorothiazide Mouth Every Day Epipen 2-Hayder / Active Solution 0.3mg/0.3M use as Unknown 0000 Auto-Injec L directed t Vitamin D High / Active Capsules 1000Unit 1 by Unknown Potency 0000 mouth every day Vitamin B 12 / Active Lozenges 2500mg by mouth Unknown 0000 every day Nac / Active Capsules 500mg 2 by Unknown 0000 mouth every day Bipap / Active Device for use Unknown 0000 while sleeping Oxycodone-Aceta 09/06/ Hx Tablets 5-325mg 60tabs 1-2 tabs Nieves minophen 2017 - by mouth Neftali, 05/02/ every 6 M.D. 2018 hours as needed for pain Enoxaparin 08/31/ Hx Solution 40mg/0.4ML 4ml inject 1 Nieves Sodium 2016 - subq Neftali, 05/02/ qaily for M.D. 2018 2 weeks Cephalexin 04/07/ Hx Capsules 500mg 56caps 1 capsule Z48.89 Nieves 2015 - by mouth Neftali, 05/07/ every 6 M.D. 2016 hours Wellbutrin 05/20/ Hx Tablets 300mg 1 by Unknown 2014 - mouth 05/02/ twice a 2018 day Naproxen 03/24/ Hx Tablets 500mg 60tabs 1 by Nieves 2014 - mouth Neftali, 08/30/ twice a M.D. 2016 day as needed Abilify 02/15/ Hx Tablets 7.5mg 1 by Unknown 2014 - mouth 03/23/ every day 2014 Diltiazem CD 01/20/ Hx Caps ER 90caps 1 po qd Yin 2012 - 24HR Jiang, 09/09/ M.D. 2013 Burr / Hx Capsules 120cap take one Unknown Carbonate 0000 - s capsule 05/02/ by mouth 2017 every morning, one at noon, and 2 capsules in the evening Nitroglycerin / Hx 0.4 prn chest Unknown 0000 - pain 2017 Maxalt 00/ Hx prn Unknown 0000 - migranes 2016 Triamcinolone / Hx Unknown Acetonide 0000 - 2016 Lisinopril / Hx Tablets 10mg 30tabs 1 po qd Unknown - 2017 Pravastatin / Hx 20mg 1 tab Unknown Sodium 0000 - daily 2017 Symbicort / Hx daily Unknown - 2017 Hyzaar / Hx 20mg daily Unknown - 2017 Epipen / Hx Unknown - 2017 Diltiazem HCL / Hx Caps ER 360mg 1 by Unknown CD 0000 - 24HR mouth day 2017 Latuda / Hx Tablets 20mg As Unknown 0000 - directed 2017 Bupropion HCL / Hx Tablets ER 300mg Take 1 Unknown ER (XL) 0000 - 24HR Tablet By 2017 Once Daily Diltiazem HCL / Hx Caps ER 360mg Erlinda Marquez, ER Beads 0000 - 24HR FOOD AND BEVERAGE ASSISTANT MANAGER 2017 Pravastatin / Hx Tablets 40mg Lord Erlinda, Sodium 0000 - FOOD AND BEVERAGE ASSISTANT MANAGER 2017 Nabumetone / Hx Tablets 750mg take one Unknown 0000 - tablet by mouth 2017 twice a day Sodium Chloride / Hx Solution 5% Unknown - 2017 Medications Administered in Office Medication Date Status Form Strength Qnty SIG Indications Ordering Provider Depomedrol Administered Injection Nieves 40MG 018 Dinesh Lindsay Depomedrol Administered Injection Orlando 80MG 014 Dinesh Laureano Depomedrol Administered Injection Yin 80MG 013 Dinesh Jiang Vital Signs Date Vital Result Comment 06/20/2018 Height 60 inches 5'0" Weight 290.12 lb Heart Rate 81 /min BP Systolic Sitting 120 mmHg Lue large cuff BP Diastolic Sitting 70 mmHg Lue large cuff Respiratory Rate 12 /min O2 % BldC Oximetry 97 % BMI (Body Mass Index) 56.7 kg/m2 06/07/2018 Height 60 inches 5'0" Weight 286.00 lb with shoes Heart Rate 60 /min BP Systolic Sitting 120 mmHg Lue lg cuff BP Diastolic Sitting 70 mmHg Lue lg cuff Respiratory Rate 16 /min BMI (Body Mass Index) 55.8 kg/m2 05/03/2018 Height 60 inches 5'0" Weight 289.00 lb w/shoes Heart Rate 90 /min BP Systolic Sitting 160 mmHg lue lg cuff BP Diastolic Sitting 74 mmHg lue lg cuff BP Systolic Standing 152 mmHg la sitting BP Diastolic Standing 82 mmHg la sitting BMI (Body Mass Index) 56.4 kg/m2 Ejection Fraction no info ae 12/17/2017 Height 60 inches 5'0" Weight 280.00 lb Heart Rate 72 /min BP Systolic 130 mmHg BP Diastolic 72 mmHg BMI (Body Mass Index) 54.7 kg/m2 09/26/2017 Height 60 inches 5'0" Weight 280.00 lb Heart Rate 74 /min BP Systolic 124 mmHg BP Diastolic 71 mmHg Pain Level 4 BMI (Body Mass Index) 54.7 kg/m2 09/17/2017 Height 60 inches 5'0" Weight 286.00 lb Heart Rate 73 /min BP Systolic 159 mmHg BP Diastolic 76 mmHg Body Temperature 98.3 F Pain Level 7 BMI (Body Mass Index) 55.8 kg/m2 08/31/2017 Height 59.5 inches 4'11.50" Weight 286.00 lb BP Systolic 142 mmHg BP Diastolic 84 mmHg Respiratory Rate 20 /min Body Temperature 98.3 F Pain Level 7 BMI (Body Mass Index) 56.8 kg/m2 08/17/2017 Height 59.5 inches 4'11.50" Weight 286.00 lb Heart Rate 73 /min BP Systolic 128 mmHg BP Diastolic 67 mmHg Pain Level 6 BMI (Body Mass Index) 56.8 kg/m2 08/03/2017 Height 59 inches 4'11" Weight 268.00 lb BP Systolic 120 mmHg BP Diastolic 70 mmHg Respiratory Rate 20 /min Pain Level 6 BMI (Body Mass Index) 54.1 kg/m2 06/27/2017 Height 59 inches 4'11" Weight 268.00 lb BP Systolic 112 mmHg BP Diastolic 64 mmHg Respiratory Rate 17 /min Pain Level 8 BMI (Body Mass Index) 54.1 kg/m2 10/25/2016 Height 60 inches 5'0" Weight 260.00 lb Body Temperature 98.0 F Pain Level 1 BMI (Body Mass Index) 50.8 kg/m2 10/02/2016 Height 60 inches 5'0" Weight 260.00 lb Pain Level 8 BMI (Body Mass Index) 50.8 kg/m2 08/04/2016 Height 60 inches 5'0" Weight 260.00 lb Heart Rate 60 /min Respiratory Rate 16 /min Pain Level 0 only with specific movements BMI (Body Mass Index) 50.8 kg/m2 07/10/2016 Height 60 inches 5'0" Weight 260.00 lb Pain Level 2 numb, not much pain BMI (Body Mass Index) 50.8 kg/m2 07/07/2016 Height 60 inches 5'0" Weight 260.00 lb Heart Rate 60 /min Respiratory Rate 18 /min Pain Level 9 BMI (Body Mass Index) 50.8 kg/m2 06/08/2016 Height 60 inches 5'0" Weight 258.00 lb Body Temperature 98.5 F Pain Level 0 BMI (Body Mass Index) 50.4 kg/m2 05/08/2016 Height 60 inches 5'0" Weight 258.00 lb Heart Rate 64 /min BP Systolic Sitting 136 mmHg BP Diastolic Sitting 76 mmHg Respiratory Rate 18 /min Pain Level 0 BMI (Body Mass Index) 50.4 kg/m2 04/10/2016 Height 60 inches 5'0" Weight 258.00 lb Body Temperature 98.1 F Pain Level 2 BMI (Body Mass Index) 50.4 kg/m2 04/07/2016 Height 60 inches 5'0" Weight 258.00 lb Body Temperature 98.1 F Pain Level 5 BMI (Body Mass Index) 50.4 kg/m2 03/06/2016 Height 60 inches 5'0" Weight 269.00 lb Heart Rate 68 /min Pain Level 5 BMI (Body Mass Index) 52.5 kg/m2 02/17/2016 Height 60 inches 5'0" Weight 169.00 lb Heart Rate 68 /min BP Systolic Sitting 122 mmHg BP Diastolic Sitting 68 mmHg Respiratory Rate 16 /min Pain Level 5 BMI (Body Mass Index) 33.0 kg/m2 05/21/2015 Heart Rate 72 /min BP Systolic Sitting 144 mmHg BP Diastolic Sitting 88 mmHg Respiratory Rate 18 /min O2 % BldC Oximetry 98 % 03/24/2015 Height 60 inches 5'0" Weight 268.00 lb Heart Rate 59 /min BP Systolic 114 mmHg BP Diastolic 67 mmHg Pain Level 7 BMI (Body Mass Index) 52.3 kg/m2 02/16/2015 Height 60 inches 5'0" Weight 266.00 lb Heart Rate 78 /min BP Systolic Sitting 136 mmHg BP Diastolic Sitting 70 mmHg Respiratory Rate 20 /min O2 % BldC Oximetry 98 % BMI (Body Mass Index) 51.9 kg/m2 02/11/2015 Height 60 inches 5'0" Weight 260.00 lb Pain Level 5 BMI (Body Mass Index) 50.8 kg/m2 12/03/2014 Height 59 inches 4'11" Heart Rate 76 /min BP Systolic 142 mmHg BP Diastolic 87 mmHg 11/05/2014 Height 59 inches 4'11" Weight 266.00 lb Body Temperature 98.2 F BMI (Body Mass Index) 53.7 kg/m2 10/08/2014 Height 60 inches 5'0" Heart Rate 78 /min BP Systolic 125 mmHg BP Diastolic 76 mmHg 09/10/2014 Height 60 inches 5'0" Weight 262.00 lb Heart Rate 71 /min BP Systolic Sitting 142 mmHg BP Diastolic Sitting 71 mmHg Respiratory Rate 20 /min O2 % BldC Oximetry 98 % BMI (Body Mass Index) 51.2 kg/m2 Neck Circumference in inches 16.25 08/14/2014 Height 60 inches 5'0" Weight 271.00 lb Pain Level 5 BMI (Body Mass Index) 52.9 kg/m2 07/31/2014 Height 60 inches 5'0" Weight 271.00 lb Pain Level 6 BMI (Body Mass Index) 52.9 kg/m2 07/20/2014 Height 60 inches 5'0" Weight 271.00 lb Heart Rate 75 /min BP Systolic 140 mmHg BP Diastolic 79 mmHg BMI (Body Mass Index) 52.9 kg/m2 03/13/2014 Height 60 inches 5'0" Weight 271.00 lb Heart Rate 80 /min BP Systolic 180 mmHg BP Diastolic 100 mmHg BMI (Body Mass Index) 52.9 kg/m2 12/31/2013 Height 60 inches 5'0" Weight 270.00 lb Heart Rate 83 /min BP Systolic 124 mmHg BP Diastolic 68 mmHg BMI (Body Mass Index) 52.7 kg/m2 12/24/2013 Height 60 inches 5'0" Weight 270.00 lb Heart Rate 80 /min BP Systolic 142 mmHg BP Diastolic 85 mmHg BMI (Body Mass Index) 52.7 kg/m2 01/20/2013 Height 60 inches 5'0" Weight 258.00 lb Heart Rate 88 /min BP Systolic Sitting 128 mmHg BP Diastolic Sitting 88 mmHg BMI (Body Mass Index) 50.4 kg/m2 07/31/2012 Height 60 inches 5'0" Weight 242.75 lb Heart Rate 100 /min rechecked 88 and regular BP Systolic Sitting 140 mmHg BP Diastolic Sitting 72 mmHg BMI (Body Mass Index) 47.4 kg/m2 Results Test Date Test Result H/L Range Note Laboratory test 10/13/2016 Point of Care Glucose 105 mg/dL 74-106 1 finding Laboratory test 10/30/2014 Urine Negative Negative 2 finding Laboratory test 07/29/2014 Erythrocyte Sed Rate 33 mm/Hr High 0-14 finding CBC Auto Diff 07/29/2014 White Blood Count 8.6 10^3/uL 4.8-10.8 Red Blood Count 4.21 10^6/uL 4.0-5.4 Hemoglobin 11.9 g/dL Low 12.0-16.0 Hematocrit 35 % 35-47 Mean Corpuscular Volume 84 fL 80-97 Mean Corpuscular Hemoglobin 28 pg 27-31 Mean Corpuscular HGB Conc 34 g/dL 31-36 Red Cell Distribution Width 15 % 10.5-15 Platelet Count 288 10^3/uL 150-450 Mean Platelet Volume 8 um3 7.4-10.4 Abs Neutrophils 6.5 10^3/uL 1.5-7.7 Abs Lymphocytes 1.5 10^3/uL 1.0-4.8 Abs Monocytes 0.5 10^3/uL 0-0.8 Abs Eosinophils 0 10^3/uL 0-0.6 Abs Basophils 0 10^3/uL 0-0.2 Abs Nucleated RBC 0 10^3/uL Granulocyte % 75.8 % 38-83 Lymphocyte % 17.9 % Low 25-47 Monocyte % 6.0 % 1-9 Eosinophil % 0.2 % 0-6 Basophil % 0.1 % 0-2 Nucleated Red Blood Cells % 0 Laboratory test finding 07/29/2014 C Reactive Protein 6.02 mg/L High < 5.00 3 1 Automotive Drivability Technician: [id number] NAVARRETE 2 If is still suspected, please repeat test after 48 to 72 hours. This test detects intact HCG only and is indicated for the early detection of . 3 Acute inflammation: >10.00 Procedures Date CPT Code Description Status 06/07/2018 58773 EKG Tracing & Interpretation Completed 06/05/2018 37754 ECHO Transthoracic, Real-Time 2D With Doppler And Color Completed Flow 06/05/2018 71104 ECHO Transthoracic, Real-Time 2D With Doppler And Color Completed Flow 05/03/2018 08003 EKG Tracing & Interpretation Completed 12/17/2017 66383 Inject/Drain Joint/Bursa Major W/O US Completed 09/06/2017 95383 Arthroscopy,Knee,Meniscectomy Media & Lateral Completed 09/06/2017 05416 Arthroscopy,Knee,Meniscectomy Media & Lateral Completed 10/13/2016 54445 Trigger Finger Release Incision / Tendon Sheath Completed Incision 10/13/2016 54733 Trigger Finger Release Incision / Tendon Sheath Completed Incision 05/26/2016 68847 Trigger Finger Release Incision / Tendon Sheath Completed Incision 05/26/2016 69541 Trigger Finger Release Incision / Tendon Sheath Completed Incision 05/26/2016 08014 Trigger Finger Release Incision / Tendon Sheath Completed Incision 05/26/2016 91800 Dequervains-Tendon Sheath Incision/Extensor Completed Sheath,Wrist 03/31/2016 20913 Trigger Finger Release Incision / Tendon Sheath Completed Incision 03/31/2016 54250 Trigger Finger Release Incision / Tendon Sheath Completed Incision 03/31/2016 29310 Dequervains-Tendon Sheath Incision/Extensor Completed Sheath,Wrist 01/19/2015 07352 Polysomnography Sleep Staging 4+ Parameters W/Cpap Completed 10/30/2014 08933 Trigger Finger Release Incision / Tendon Sheath Completed Incision 07/20/2014 77077 Xray Knee 3 Views Completed 01/26/2014 65405 Short Leg Cast Completed 01/22/2014 82683 Walking Cast Completed 12/31/2013 16483 Walking Cast Completed 12/24/2013 52975 Inject Tendon Sheath Or Ligament Aponeurosis Eg Plantar Completed Fascia 11/28/2013 70247 Rad Exam; OS Alcis Completed 08/19/2013 97480 Rad Exam; Hand Comp Completed 07/22/2013 26770 Trigger Finger Release Incision / Tendon Sheath Completed Incision 02/17/2013 10787 Inject Tendon Sheath Or Ligament Aponeurosis Eg Plantar Completed Fascia 01/20/2013 60631 Rad Exam; Wrist, Comp, Min 3 Views Completed 12/08/2012 08525 EKG, Interpretation Only Completed 07/19/2012 57890 Left Heart Cath. Incl S/I Coronaries, Angio S/I V Gram Completed If Done 07/17/2012 40770 EKG, Interpretation Only Completed 10/27/2008 33719 EKG, Interpretation Only Completed Encounters Type Date Location Provider CPT E/M Dx Office Visit 06/07/2018 [facility] Viri Estrada N.P. 15103 R07.9 3:00p General Accounting Clerk I10 E66.9 E78.00 G47.33 Office Visit 05/03/2018 3:00p [facility] Damián LoveMello Solomon, 84657 E78.00 M.D. I10 R07.9 E66.9 Office Visit 12/17/2017 2:45p [facility] Nieves Lindsay M.D. 32738 M25.562 Sylvie M17.12 S83.242A M25.462 Office Visit 08/17/2017 10:45a [facility] Nieves Lindsay M.D. 90422 M25.562 Sylvie M25.462 M17.12 S83.242D S83.282A Office Visit 08/03/2017 1:30p [facility] Nieves Lindsay 41742 S83.412A Sylvie Montiel M25.462 M25.562 Office Visit 06/27/2017 3:00p [facility] Nieves Lindsay 69706 S83.412A Sylvie Montiel M25.462 Office Visit 10/02/2016 10:50a [facility] Yin Jiang 70146 M65.351 Of Sylvie Montiel Office Visit 08/04/2016 9:15[place] [address] S46.812A Of Sylvie M19.212 S63.502S S46.812D Office Visit 07/07/2016 1:45p [facility] [place] [address] S46.812A Sylvie S66.912A Office Visit 05/08/2016 9:20a [facility] Yin Jiang 46643 M65.312 Of Sylvie Montiel M65.322 M65.4 M65.311 Office Visit 03/06/2016 10:00a [facility] Yin Jiang 08135 M65.311 Of Sylvie Montiel M65.4 Office Visit 02/17/2016 2:20p [facility] Yin Jiang 07786 S60.221A Of Sylvie Montiel Office Visit 05/21/2015 11:00a [facility] Antoinette Moscoso 16947 327.23 Services [facility] EDGAR RN, FOOD AND BEVERAGE ASSISTANT MANAGER-BC 780.53 Office Visit 03/24/2015 2:10p [facility] Nieves Lindsay M.D. 22091 719.46 C.M.A. Office Visit 02/16/2015 10:00a [facility] [place] [address] 327.23 [facility] 278.01 780.53 Office Visit 02/11/2015 8:00a [facility] Nieves Lindsay M.D. 54085 719.46 Of C.M.A. Office Visit 10/08/2014 1:30p [facility] Yin Jiang 05167 727.03 Of Sylvie Montiel 842.00 Office Visit 09/10/2014 8:45a [facility] [place] [address] 327.23 Services Of [place] 780.53 327.42 Office Visit 08/14/2014 8:15a [facility] Nieves Lindsay M.D. 53882 719.46 C.M.A. Office Visit 07/31/2014 8:15a [facility] Nieves Lindsay M.D. 81232 719.46 C.M.A. Office Visit 07/20/2014 1:15p [facility] Nieves Lindsay M.D. 58222 996.49 C.M.A. V43.65 Office Visit 03/13/2014 3:15p [facility] Orlando Laureano M.D. 90126 728.71 Of C.M.A. Office Visit 02/19/2014 3:15p [facility] Orlando Laureano M.D. 71893 728.71 Of C.M.A. Office Visit 01/26/2014 10:00a [facility] Yessenia Toro 71895 728.71 Of C.M.A. RPA-C Office Visit 01/22/2014 3:15p [facility] Orlando Laureano M.D. 33267 728.71 Of C.M.A. Office Visit 12/31/2013 9:15a [facility] Orlando Laureano M.D. 45790 728.71 Of C.M.A. Office Visit 12/24/2013 2:30p [facility] Orlando Laureano M.D. 30062 728.71 Of C.M.A. Office Visit 11/28/2013 2:15p [facility] Orlando Laureano M.D. 16484 728.71 Of C.M.A. Office Visit 08/19/2013 4:00p [facility] Yin Jiang 75320 923.20 Of Deep.MSandip Montiel Office Visit 06/18/2013 1:45p [facility] Yin Jiang 16856 727.03 [facility] 06/12/2013 2:15p [facility] William Malave M.D. 29573 845.09 [facility] Office Visit 02/17/2013 9:45a [facility] Yin Jiang 12753 813.42 Of [facility] 727.03 Office Visit 02/03/2013 10:00a [facility] Jiang 89898 813.42 [facility] 01/20/2013 10:00a [facility] Yin Jiang 96610 719.44 Of [facility] 719.44 Office Visit 12/05/2012 11:04a [facility], Orlando Nguyen, 87432 466.0 Hospitalists N.P. 493.10 311 401.9 Office Visit 12/03/2012 [facility] Nguyen, 98649 466.0 Hospitalists N.P. 493.10 311 401.9 Office Visit 11/27/2012 12:30p [facility] Tita Mcnair, 32273 311 Hospitalists DMelloOMello 401.9 Office Visit 07/31/2012 2:00p [facility] Paloma Modi N.P. 12004 794.39 Office Visit 07/19/2012 2:19p [facility] Yin Lima D.O. 20810 786.50 794.39 401.1 Plan of Care Future Appointment(s):06/20/2019 10:30 am - Antoinette Moscoso DNP, RN, FOOD AND BEVERAGE ASSISTANT MANAGER- at [facility]07/03/2018 2:00 pm - Nurse Visit cc at [facility]09/11/2018 1:30 pm - Damián Solomon M.D. at [facility]07/26/2018 11:15 am - Corona Talley M.D. at [facility]06/20/2018 - Antoinette Moscoso DNP, ADEN, FOOD AND BEVERAGE ASSISTANT MANAGER-BCG47.33 Obstructive sleep apnea (adult) (pediatric)New Orders:Sleep-HomecareComments:Sleep Apnea - Dx 2009 outside facility Sharda: AHI 28/hour, RDI 70/hour. BiPAP titration 2014 wt 260On BiPAP AHI 1.3/hour (normal)Follow up:1 yearRecommendations: Continue PAP device, Benefitting and compliant with treatment. Cleaning Wipe off mask daily (baby wipe-no scent, or warm water) Clean mask, tubing, filter, and water chamber weekly in mild no scent dish soap and water. Hang to dry. So -Clean is an option (not covered by insurance) If you have any sleepiness while driving you MUST avoid operating a vehicle or machinery. If you have difficulty with your equipment, or need to replace your mask or hoses, please contact your homecare agency. A weight change of 20 pounds or more may have an effect on your equipment; if you are experiencing problems please call for an appointment. If you have any further questions, please call the [facility] at [phone].Z68.43 Body mass index (BMI) 50-59.9 , adultReferral: Karen Watson MD, Internal MedicineRecommendations:[facility] supervised [facility]
--- OUTSIDE RECORDS SUMMARY | 2018-06-21 13:40 | XMS REPORT ---
:1965 External Reference #:[id number] Author Organization [facility] Address [address] [place] [address] [place] [address] Phone [phone] Care Team Providers Name Role Phone Erlinda Marquez FNP Primary Care Physician Unavailable Payers Type Date Identification Numbers Payment Provider Subscriber Medicare Primary Effective: Policy Number: Medicare Tanesha Wolfe 2007 [id number] PayID: [id number] [address] [place] [address] [facility] Part B Policy Number: [id number] Medicaid Tanesha Wolfe PayID: [id number] [address] [place] [address] Problems Date Description Provider Status Onset: 07/31/2012 Abnormal results of cardiovascular Paloma Modi N.P. Active function studies Onset: 02/16/2015 Obstructive sleep apnea syndrome Chana Bo MD Active Onset: 02/16/2015 Morbid obesity Chana Bo MD Active Onset: 02/16/2015 Hypersomnia with sleep apnea Chana Bo MD Active Onset: 08/04/2016 Strain of trapezius muscle Gavi Henderson MD Active Onset: 08/04/2016 Localized, secondary osteoarthritis of Gavi Henderson MD Active the shoulder region Onset: 08/04/2016 Sprain of wrist Gavi Henderson MD Active Onset: 08/17/2017 Localized, primary osteoarthritis Nieves Lindsay M.D. Active Onset: 08/17/2017 Current tear of lateral cartilage Nieves Lindsay M.D. Active AND/OR meniscus of knee Onset: 08/17/2017 Radial tear of medial meniscus Nieves Lindsay M.D. Active Onset: 09/17/2017 Current tear of medial cartilage Nieves Lindsay M.D. Active AND/OR meniscus of knee Family History Date Family Member(s) Problem(s) Comments General Diabetes mother, maternl grandmother & aunt General Arthritis grandmother General Colon Cancer maternal grandfather General [place] father Onset: (2018) (age 72 Father Alive And Well aneurysm, [place] Years) Onset: (05/03/2018) Mother Diabetes (age 75 [...] Foster, Automatic With daily N.P. Large Cuff Diltiazem CD 05/03/ Active Caps ER 120mg 180cap 2 by I10 Damián 2018 24HR s mouth Nate Solomon, every day M.D. Pravastatin 05/03/ Active Tablets 40mg take 1 Damián Sodium 2018 tablet by Nate Solomon, mouth at M.D. bedtime Knee Brace 06/29/ Active Misc 1units hinged Nieves Adjustable 2016 knee Neftali, Hinged/Maximum brace M.D. Support Ibuprofen / Active Tablets 800mg 100tab prn Unknown 0000 s Effexor / Active Tablets 150mg 1 po qd Unknown 0000 Nitroglycerin / Active 0.4 prn chest Unknown 0000 pain Lisinopril / Active Tablets 10mg 30tabs 1 po qd Unknown 0000 Albuterol / Active prn Unknown Sulfate 0000 Symbicort / Active daily Unknown 0000 Omeprazole / Active 40mg 1 tab Unknown 0000 twice a day Losartan / Active Tablets 50-12.5mg Take 1 Unknown Potassium/[place] 0000 Tablet By chlorothiazide Mouth Every Day [...] Unknown 2014 - mouth 05/02/ twice a 2017 day Naproxen 03/24/ Hx Tablets 500mg 60tabs 1 by Nieves 2014 - mouth Neftali, 08/30/ twice a M.D. 2016 day as needed Abilify 02/15/ Hx Tablets 7.5mg 1 by Unknown 2014 - mouth 03/23/ every day 2014 Diltiazem CD 01/20/ Hx Caps ER 90caps 1 po qd Yin 2012 - 24HR Jiang, 09/09/ M.D. 2013 [place] / Hx Capsules 120cap take one Unknown Carbonate 0000 - s capsule 05/02/ by mouth 2017 every morning, one at noon, and 2 capsules in the evening Maxalt / Hx prn Unknown 0000 - migranes 2016 Triamcinolone 00/ Hx Unknown Acetonide 0000 - 2016 Pravastatin 00/ Hx 20mg 1 tab Unknown Sodium 0000 - daily 2017 Hyzaar / Hx 20mg daily Unknown 0000 - 2017 Epipen / Hx Unknown 0000 - 2017 Diltiazem HCL 00/ Hx Caps ER 360mg 1 by Unknown CD 0000 - 24HR mouth day 2017 Latuda / Hx Tablets 20mg As Unknown 0000 - directed 2017 Bupropion HCL / Hx Tablets ER 300mg Take 1 Unknown ER (XL) 0000 - 24HR Tablet By 2017 Once Daily Diltiazem HCL / Hx Caps ER 360mg , Erlinda, ER Beads 0000 - 24HR [employer] 2017 Pravastatin / Hx Tablets 40mg Lord, Erlinda, Sodium 0000 - [employer]ER 2017 Nabumetone / Hx Tablets 750mg take one Unknown 0000 - tablet by 2017 twice a day Sodium Chloride / Hx Solution 5% Unknown 0000 - 2017 Medications Administered in Office Medication Date Status Form Strength Qnty SIG Indications Ordering Provider Depomedrol Administered Injection Nieves 40MG 018 Dinesh Lindsay Depomedrol Administered Injection Orlando 80MG 014 Dinesh Laureano Depomedrol Administered Injection Yin 80MG 013 Dinesh Jiang Vital Signs Date Vital Result Comment 06/07/2018 Height 60 inches 5'0" Weight 286.00 [...] 6.02 mg/L High < 5.00 3 1 Exhibits Coordinator: [id number] JOSEFINA NAVARRETE 2 If is still suspected, please repeat test after 48 to 72 hours. This test detects intact HCG only and is indicated for the early detection of . 3 Acute inflammation: >10.00 Procedures Date CPT Code Description Status 06/07/2018 07864 EKG Tracing & Interpretation Completed 06/05/2018 70868 ECHO Transthoracic, Real-Time 2D With Doppler And Color Completed Flow 06/05/2018 79249 ECHO Transthoracic, Real-Time 2D With Doppler And Color Completed Flow 05/03/2018 62077 EKG Tracing & Interpretation Completed 12/17/2017 32245 Inject/Drain Joint/Bursa Major W/O US Completed 09/06/2017 95382 Arthroscopy,Knee,Meniscectomy Media & Lateral Completed 09/06/2017 94765 Arthroscopy,Knee,Meniscectomy Media & Lateral Completed 10/13/2016 67101 Trigger Finger Release Incision / Tendon Sheath Completed Incision 10/13/2016 18648 Trigger Finger Release Incision / Tendon Sheath Completed Incision 05/26/2016 67306 Trigger Finger Release Incision / Tendon Sheath Completed Incision 05/26/2016 72105 Trigger Finger Release Incision / Tendon Sheath Completed Incision 05/26/2016 48980 Trigger Finger Release Incision / Tendon Sheath Completed Incision 05/26/2016 43103 Dequervains-Tendon Sheath Incision/Extensor Completed Sheath,Wrist 03/31/2016 30568 Trigger Finger Release Incision / Tendon Sheath Completed Incision 03/31/2016 79424 Trigger Finger Release Incision / Tendon Sheath Completed Incision 03/31/2016 67636 Dequervains-Tendon Sheath Incision/Extensor Completed Sheath,Wrist 01/19/2015 91675 Polysomnography Sleep Staging 4+ Parameters W/Cpap Completed 10/30/2014 43223 Trigger Finger Release Incision / Tendon Sheath Completed Incision 07/20/2014 28436 Xray Knee 3 Views Completed 01/26/2014 56259 Short Leg Cast Completed 01/22/2014 68713 Walking Cast Completed 12/31/2013 58803 Walking Cast Completed 12/24/2013 10260 Inject Tendon Sheath Or Ligament Aponeurosis Eg Plantar Completed Fascia 11/28/2013 77590 Rad Exam; OS Alcis Completed 08/19/2013 48763 Rad Exam; Hand Comp Completed 07/22/2013 72850 Trigger Finger Release Incision / Tendon Sheath Completed Incision 02/17/2013 41192 Inject Tendon Sheath Or Ligament Aponeurosis Eg Plantar Completed Fascia 01/20/2013 66280 Rad Exam; Wrist, Comp, Min 3 Views Completed 12/08/2012 82920 EKG, Interpretation Only Completed 07/19/2012 63740 Left Heart Cath. Incl S/I Coronaries, Angio S/I V Gram Completed If Done 07/17/2012 31053 EKG, Interpretation Only Completed 10/27/2008 95445 EKG, Interpretation Only Completed Encounters Type Date Location Provider CPT E/M Dx Office Visit 05/03/2018 3:00p [facility] Damián Solomon, 85240 E78.00 M.Jovana I10 R07.9 E66.9 Office Visit 12/17/2017 2:45p [facility] M.D. 69505 M25.562 C.M.A. M17.12 S83.242A M25.462 Office Visit 08/17/2017 10:45a [facility] M.D. 40979 M25.562 C.M.A. M25.462 M17.12 S83.242D S83.282A Office Visit 08/03/2017 1:30p [facility] 35888 S83.412A C.M.AMello MMelloDMello M25.462 M25.562 Office Visit 06/27/2017 3:00p [facility] 22568 S83.412A C.M.AMello MFarhan M25.462 Office Visit 10/02/2016 10:50a [facility] Yin Jiang 39004 M65.351 Of C.MSandip Montiel Office Visit 08/04/2016 9:15a [place] [address] S46.812A Of C.M.A. M19.212 S63.502S S46.812D Office Visit 07/07/2016 1:45p [facility] [place] [address] S46.812A C.M.A. S66.912A Office Visit 05/08/2016 9:20a [facility] Yin Jiang 40568 M65.312 Of C.MSandip Montiel M65.322 M65.4 M65.311 Office Visit 03/06/2016 10:00a [facility] Yin Jiang 92242 M65.311 Of C.Jagdeep Montiel M65.4 Office Visit 02/17/2016 2:20p [facility] Yin Jiang 01240 S60.221A Of C.MSandip Montiel Office Visit 05/21/2015 11:00a [facility] Antoinette Moscoso 90011 327.23 Services Of Donta HERNÁNDEZ RN, [employer]OR [employer]SEMBLER- 780.53 Office Visit 03/24/2015 2:10p [facility] M.D. 05091 719.46 C.M.A. Office Visit 02/16/2015 10:00a [facility] [place] [address] 327.23 Services Of [facility] 278.01 780.53 Office Visit 02/11/2015 8:00a [facility] Nieves Lindsay M.D. 08981 719.46 Of C.M.A. Office Visit 10/08/2014 1:30p [facility] Yin Jiang 30705 727.03 Of C.M.A. Dinesh 842.00 Office Visit 09/10/2014 8:45a [facility] [place] [address] 327.23 [facility] 780.53 327.42 Office Visit 08/14/2014 8:15a [facility] M.D. 01056 719.46 C.M.A. Office Visit 07/31/2014 8:15a [facility] M.D. 83633 719.46 C.M.A. Office Visit 07/20/2014 1:15p [facility] M.D. 66294 996.49 C.M.A. V43.65 Office Visit 03/13/2014 3:15p [facility] Orlando Laureano M.D. 40326 728.71 Of C.M.A. Office Visit 02/19/2014 3:15p [facility] Orlando Laureano M.D. 89219 728.71 Of C.M.A. Office Visit 01/26/2014 10:00a [facility] Yessenia Toro 64252 728.71 Of C.M.A. RPA-C Office Visit 01/22/2014 3:15p [facility] Orlando Laureano M.D. 63267 728.71 Of C.M.A. Office Visit 12/31/2013 9:15a [facility] Orlando Laureano M.D. 68419 728.71 Of C.M.A. Office Visit 12/24/2013 2:30p [facility] Orlando Laureano M.D. 68342 728.71 Of C.M.A. Office Visit 11/28/2013 2:15p [facility] Orlando Laureano M.D. 57433 728.71 Of C.M.A. Office Visit 08/19/2013 4:00p [facility] Yin Jiang, 16930 923.20 Of Sylvie Montiel Office Visit 06/18/2013 1:45p [facility] Yin Jiang, 40630 727.03 Of [facility] Office Visit 06/12/2013 2:15p [facility] William Malave M.D. 19892 845.09 [facility] [place] Office Visit 02/17/2013 9:45a [facility] Yin Jiang, 65382 813.42 Of [facility] 727.03 Office Visit 02/03/2013 10:00a [facility] Yin Jiang 74313 813.42 Of [facility] Office Visit 01/20/2013 10:00a [facility] Yin Jiang, 89128 719.44 Of [facility] 719.44 Office Visit 12/05/2012 11:04a [facility], Orlando Nguyen, 75441 466.0 Hospitalists N.P. 493.10 311 401.9 Office Visit 12/03/2012 11:03a [facility], Orlando Nguyen, 51900 466.0 Hospitalists N.P. 493.10 311 401.9 Office Visit 11/27/2012 12:30p [facility], Tita Mcnair, 75646 311 Hospitalists D.OMello 401.9 Office Visit 07/31/2012 2:00p [facility] Paloma Modi, N.P. 97776 794.39 Office Visit 07/19/2012 2:19p [facility] Yin Lima D.O. 87197 786.50 794.39 401.1 Plan of Care Future Appointment(s):09/10/2018 2:00 pm - Viri Estrada, N.P. at [facility]06/24/2018 1:00 pm - Nurse Visit cc at [facility]2017 11:15 am - Corona Talley M.D. at [facility]06/07 - Viri Estrada, N.P.R07.9 Chest pain, [id number] Essential (primary ) hypertensionNew Medication:Blood Pressure Monitor Automatic With Large CuffFollow up:3 monthsRecommendations:DECREASE Cardizem to 2 120mg tabs daily Check BP 1-2x daily and bring cuff with stallworth to nurse visit for BP check. Check bottle at home and confirm that you are taking BOTH Lisnopril and Losartan/ HCTZE66.9 Obesity, hhsavcxfvljA61.00 Pure hypercholesterolemia, jcsrpdksgnmF45.33 Obstructive sleep apnea (adult) (pediatric)Recommendations: Call Sleep office and schedule f/u to have efficacy of machine checked.
--- NOTE | 2018-06-21 13:43 | ED ---
Lower Extremity - HPI Summary HPI Summary: This is scribe Reese Guevara documenting for attending Kelvin Green MD. Patient is a 52 y/o F w/ c/o possible DVT in LLE. She was referred to ED by her PCP. The patient states she has edema in the back of her left leg and foot. Sx onset yesterday. Hx of blood clots is reported, with the most recent clot being several years ago. She denies any recent long trips. Patient has also been experiencing intermittent SOB and chest pain. On triage, pain is rated 6/10 but she denies chest pain in the room. Nothing is noted to aggravate/alleviate Sx. Patient reports being on blood thinners six months ago and has a ruling machine feeder for the chest pain and SOB. Home medications and allergies are noted. - History of Current Complaint Chief Complaint: EDExtremityLower Stated Complaint: POSS BLOOD CLOT LT LEG Time Seen by Provider: 06/21/18 13:35 Hx Obtained From: Patient Onset/Duration: Days - edema onset yesterday Severity Currently: None - pain denied in the room Pain Intensity: 0 Pain Scale Used: 0-10 Numeric - 0/10 Timing: Constant - LLE edema, Intermittent - chest pain and SOB are reported to be intermittent Associated Signs And Symptoms: Positive: Swelling - LLE, Other - SOB, chest pain , neither present in the room Aggravating Factor(s): Nothing Alleviating Factor(s): Nothing - Allergies/Home Medications Allergies/Adverse Reactions: Allergies Allergy/AdvReac Type Severity Reaction Status Date / Time MS Aspirin [Aspirin] Allergy Severe Hives/Diff. Verified 02/28/18 10:40 Breathing/I tching MS Bee Venom [Bee Venom] Allergy Severe Anaphylatic Verified 02/28/18 10:40 Shock MS Moxifloxacin [From Avelox] Allergy Severe Anaphylatic Verified 02/28/18 10:40 Shock MS Pork Allergy Allergy Severe anaphylatic Verified 02/28/18 10:40 [Pork Allergy] MS Topiramate [From Topamax] Allergy Severe Suicidal Verified 02/28/18 10:40 Adhesive Tape Allergy Intermediate Rash Verified 02/28/18 10:40 MS Zolpidem [From Ambien] Allergy Intermediate See Comment Verified 02/28/18 10: 40 MS Aripiprazole Allergy Unknown Hives/Diff. Verified 02/28/18 10:40 [From Abilify] Breathing/I tching MS Lorazepam [From Ativan] Allergy Unknown Hallucinati Verified 02/28/18 10:40 ons MS Acesulfame Potassium Allergy Rash Verified 02/28/18 10:40 [From Suboxone] MS Atomoxetine Allergy Hives Verified 02/28/18 10:40 [From Strattera] MS Buprenorphine/Naloxone Allergy Rash Verified 02/28/18 10:40 [From Suboxone] ENVIRONMENTAL/SEASONAL Allergy Intermediate Sneezing Uncoded 02/28/18 10:40 HAYFEVER Home Medications: Home Medications Acetylcysteine [Nac] 500 mg PO DAILY 06/21/18 [History Confirmed 06/21/18] Cholecalciferol TAB* [Vitamin D TAB*] 1,000 unit PO DAILY 06/21/18 [History Confirmed 06/21/18] Cyanocobalamin TAB* [Vitamin B12 TAB*] 500 mcg PO DAILY 06/21/18 [History Confirmed 06/21/18] Diltiazem CD CAP* [Cardizem CD CAP*] 240 mg PO DAILY 06/21/18 [History Confirmed 06/21/18] Omeprazole CAP* [Prilosec CAP* 20 MG] 40 mg PO BID 06/21/18 [History Confirmed 06/21/18] Pravastatin (NF) [Pravachol (NF)] 80 mg PO DAILY 06/21/18 [History Confirmed ] Venlafaxine EXT RELEASE CAP* [Effexor Xr CAP*] 150 mg PO DAILY 06/21/18 [ History Confirmed 06/21/18] PMH/Surg Hx/FS Hx/Imm Hx Endocrine/Hematology History: Denies: Hx Anticoagulant Therapy, Hx Diabetes - HYPOGLYCEMIC, Hx Thyroid Disease, Hx Anemia, Hx Unexplained Bleeding, Other Endocrine/Hematological Disorders Cardiovascular History: Reports: Hx Coronary Artery Disease, Hx Hypercholesterolemia, Hx Hypertension, Other Cardiovascular Problems/Disorders - HX DVT-2003, AND S-STATES WILL BE STARTING LOVENOX AFTER SURGERY PER Denies: Hx Aneurysm, Hx Angina, Hx Angioplasty, Hx Auto Implanted Cardiovert Defib, Hx Cardiac Arrest, Hx Cardiomegaly, Hx Congenital Heart Disease, Hx Congestive Heart Failure, Hx Deep Vein Thrombosis, Hx Embolism, Hx Hypotension, Hx Pacemaker/ICD, Hx Peripheral Vascular Disease, Hx Rheumatic Fever, Hx Syncope , Hx Valvular Heart Disease Respiratory History: Reports: Hx Asthma, Hx Chronic Bronchitis, Hx Chronic Obstructive Pulmonary Disease (COPD), Hx Pneumonia, Hx Sleep Apnea Denies: Other Respiratory Problems/Disorders GI History: Reports: Hx Gastroesophageal Reflux Disease - ON MEDICATION FOR Denies: Other GI Disorders History: Reports: Hx Kidney Infection - Hx OF 2008 Denies: Hx Renal Disease, Other Problems/Disorders Musculoskeletal History: Reports: Hx Arthritis - "ALL OVER", Hx Back Problems, Hx Fibromyalgia, Hx Orthopedic Injury - RECENT R PLANTAR TENDON TEAR, Hx Tendonitis - HANDS Denies: Other Musculoskeletal History Sensory History: Reports: Hx Contacts or Glasses - GLASSES, Hx Hearing Problem Denies: Hx Cataracts, Hx Eye Injury, Hx Eye Prosthesis, Hx Glaucoma, Hx Legally Blind, Hx Macular Degeneration, Hx Vision Problem, Hx Deafness, Hx Hearing Aid, Other Sensory Impairments Opthamlomology History: Reports: Hx Contacts or Glasses - GLASSES Denies: Hx Cataracts, Hx Eye Injury, Hx Eye Prosthesis, Hx Glaucoma, Hx Legally Blind, Hx Macular Degeneration, Hx Vision Problem, Other Sensory Impairments Neurological History: Reports: Hx Headaches, Hx Migraine - PRN MEDICATION FOR, Other Neuro Impairments/Disorders - BIPOLAR Denies: Hx Dementia, Hx Developmental Delay, Hx Nerve Disease, Hx Seizures, Hx Spinal Cord Injury, Hx Transient Ischemic Attacks (TIA) Psychiatric History: Reports: Hx Anxiety - ON MEDICATION FOR, Hx Depression - ON MEDICATION FOR, Hx Post Traumatic Stress Disorder, Hx Inpatient Treatment, Hx Community Mental Health Tx, Hx Bipolar Disorder, Hx Suicide Attempt, Hx of Violent Episodes Against Others, Hx Substance Abuse, Other Psychiatric Issues/ Disorders Denies: Hx Attention Deficit Hyperactivity Disorder, Hx Eating Disorder, Hx Panic Disorder, Hx Schizophrenia - Cancer History Hx Chemotherapy: No Hx Radiation Therapy: No - Surgical History Surgery Procedure, Year, and Place: cholecystectomy, 2007, [facility]. TONSILLECTOMY AND ADENOIDECTOMY 4TH GRADE. 13 RIGHT KNEE SURGERIES, REPLACED. 3 LEFT KNEE SURGERIES. CARPAL TUNNEL/ TRIGGER FINGERS X5 MATTIE Hx Anesthesia Reactions: Yes - 1982-EXTREME NAUSEA AND VOMITING Infectious Disease History: No Infectious Disease History: Denies: Hx Clostridium Difficile, Hx Hepatitis, Hx Human Immunodeficiency Virus (HIV), Hx of Known/Suspected MRSA, Hx Shingles, Hx Tuberculosis, Hx Known/ Suspected VRE, Hx Known/Suspected VRSA, History Other Infectious Disease, Traveled Outside the [place] in Last 30 Days - Family History Known Family History: Positive: Cardiac Disease, Hypertension - Social History Alcohol Use: None Alcohol Amount: NONE SINCE 03/26/2014 Substance Use Type: Reports: None Substance Use Comment - Amount & Last Used: Narcotics Smoking Status (MU): Former Smoker Type: Cigarettes Amount Used/How Often: 3PPD X 2YR Have You Smoked in the Last Year: No Review of Systems Positive: Chest Pain - not present in the room Positive: Shortness Of Breath - not present in the room Positive: Edema - left leg/foot All Other Systems Reviewed And Are Negative: Yes Physical Exam - Summary Physical Exam Summary: VITAL SIGNS: Reviewed. GENERAL: Patient is an obese and nourished female who is lying comfortable in the stretcher. Patient is not in any acute respiratory distress. HEAD AND FACE: No signs of trauma. No ecchymosis, hematomas or skull depressions. No sinus tenderness. EYES: PERRLA, EOMI x 2, No injected conjunctiva, no nystagmus. EARS: Hearing grossly intact. Ear canals and tympanic membranes are within normal limits. MOUTH: Oropharynx within normal limits. NECK: Supple, trachea is midline, no adenopathy, no JVD, no carotid bruit, no c- spine tenderness, neck with full ROM. CHEST: Symmetric, no tenderness at palpation LUNGS: Clear to auscultation bilaterally. No wheezing or crackles. CVS: Regular rate and rhythm, S1 and S2 present, no murmurs or gallops appreciated. ABDOMEN: Soft, no tenderness. No signs of distention. No rebound no guarding, and no masses palpated. Bowel sounds are normal. EXTREMITIES: FROM in all major joints, bilateral lower extremity edema, good pulses, good capillary refill, no cyanosis or clubbing. NEURO: Alert and oriented x 3. No acute neurological deficits. Speech is normal and follows commands. SKIN: Dry and warm Triage Information Reviewed: Yes Vital Signs On Initial Exam: Initial Vitals Temp Pulse Resp BP Pulse Ox 98.4 F 74 20 121/48 97 06/21/18 13:05 06/21/18 13:05 06/21/18 13:05 06/21/18 13:05 06/21/18 13:05 Vital Signs Reviewed: Yes Diagnostics - Vital Signs Vital Signs Temp Pulse Resp BP Pulse Ox 06/21/18 13:05 98.4 F 74 20 121/48 97 - Laboratory Result Diagrams: 06/21/18 13:57 Lab Statement: Any lab studies that have been ordered have been reviewed, and results considered in the medical decision making process. - Ultrasound No standard instances Ultrasound Interpretation: No Acute Changes Ultrasound Interpretation Completed By: Radiologist - Venous Doppler Study: no evidence for LLE DVT. This report was reviewed by ED physician. Re-Evaluation - Re-Evaluation First Eval Re-Evaluation Time: 15:05 Comment: Discussed test results and labs. Informed no DVT was noted at LLE. Patient will be discharged to home. She is agreeable with the plan. Lower Extremity Course/Dx - Course Assessment/Plan: This patient is a 53-year-old female who presents to the emergency room with a chief complaint of left lower extremity pain and swelling. Patient reports that she went to see the primary care physician and they sent her here to the emergency department to rule out DVT. The patient has history of DVTs. Blood test results without any significant abnormality. Left lower extremity ultrasound impression: No DVTs. I believe the patients pain is more muscular pain. I discussed all the findings and test results with the patient. Patient was instructed to return to the emergency room immediately if any of the symptoms return or worsens. Plan of care was discussed with the patient and understands and agrees. All questions were answered at patient satisfaction. There were no further complaints or concerns. Lung exam before discharge: CTA B/L. Good air exchange. No wheezing or crackles heard. CVS: S1 and S2 present. No murmurs appreciated. Patient is alert and oriented x 3. Patient is hemodynamically stable. Patient will be discharged home with follow up PCP in the next 2-3 days. - Diagnoses Provider Diagnoses: Lower extremity pain Discharge - Sign-Out/Discharge Documenting (check all that apply): Patient Departure - discharge - Discharge Plan Condition: Stable Disposition: HOME Patient Education Materials: Musculoskeletal Pain (ED) Referrals: Erlinda Stovall [Primary Care Provider] - 3 Days Additional Instructions: Return to ED for any new or worsening symptoms.
[2018-06-21 14:29] LABS: ABS Basophils 0.1 10^3/ul (0-0.2); ABS Eosinophils 0.2 10^3/ul (0-0.6); ABS Lymphocytes 1.4 10^3/ul (1.0-4.8); ABS Monocytes 0.6 10^3/ul (0-0.8); ABS Neutrophils 5.8 10^3/ul (1.5-7.7); ABS Nucleated RBC 0 10^3/ul; Eosinophil % 2.8 % (0-6); Hematocrit 38 % (35-47); Hemoglobin 12.8 g/dl (12.0-16.0); Lymphocyte % 17.5 % (25-47); Mean Corpuscular HGB Conc 34 g/dl (31-36); Mean Corpuscular Hemoglobin 30 pg (27-31); Mean Corpuscular Volume 88 fL (80-97); Mean Platelet Volume 8.2 um3 (7.4-10.4); Nucleated Red Blood Cells % 0.2; Platelet Count 220 10^3/ul (150-450); Red Blood Count 4.33 10^6/ul (4.00-5.40); Red Cell Distribution Width 14 % (10.5-15)
--- NOTE | 2018-06-21 14:46 | RAD ---
INDICATION: LEFT lower extremity edema. COMPARISON: September 17, 2017 TECHNIQUE: Severino scale, color Doppler, and spectral analysis of the deep veins of the LEFT lower extremity. Vessel compression, phasicity, and augmentation assessed. REPORT: Morbid obesity limits acoustic window particularly at the mid femoral vein through calf veins. The LEFT common femoral, great saphenous, profunda femoral, femoral, popliteal, peroneal, and posterior tibial veins are grossly patent. Previous LEFT popliteal fossa cyst is no longer visualized. IMPRESSION: No evidence for LEFT lower extremity deep venous thrombosis.
[2018-06-21 14:47] LABS: Uric Acid 5.9 mg/dL (2.3-6.6)
[2018-06-21 15:13] LABS: Urine Appearance Clear; Urine Blood Negative (Negative); Urine Color Straw; Urine Ketones Negative (Negative); Urine Protein Negative (Negative); Urine Specific Gravity 1.005 (1.010-1.030); Urine Urobilinogen Negative (Negative)
[2018-06-21 15:18] VITALS: BP 138/79
== END 2018-06-21 15:17 | disposition home or self-care (01) ==
LOC: ED 12:58
DX: M79.605 Pain in left leg (principal); R60.0 Localized edema; R07.89 Other chest pain; R06.02 Shortness of breath; I10 Essential (primary) hypertension; J45.909 Unspecified asthma, uncomplicated; K21.9 Gastro-esophageal reflux disease without esophagitis; F41.9 Anxiety disorder, unspecified; F32.9 Major depressive disorder, single episode, unspecified; Z88.6 Allergy status to analgesic agent; Z91.030 Bee allergy status; Z88.8 Allergy status to other drugs, medicaments and biological substances; Z91.048 Other nonmedicinal substance allergy status; Z87.891 Personal history of nicotine dependence
CPT/HCPCS: 36415; 81003; 84550; 85025; 86140; 99283